=== PATIENT | female | born 1955 | race Caucasian/White ===

== ENCOUNTER 2016-11-09 08:22 | Emergency (ER) | payer BC ==
[~2016-11-09] VITALS: Ht 167.6 cm; Wt 118.2 kg
[~2016-11-09 08:22] MED LIST: ASPIRIN 81M81 MG/TA2 PO; B-12 500 MCG PO; BUSPAR5 MG PO; CELEXA 20MG20 MG/TAB PO; CLARITIN 1010 MG/TAB PO; HCTZ 25MG TAB25 MG PO; NORVASC 5MG5 MG/TAB PO; PROTONIX 40MG T40 MG PO; SINGULAIR 110 MG/TAB PO; TOPROL XL100 MG PO; VITAMIN D 400400 IU PO; VITAMIN D32000 I1 PO
[2016-11-09 08:44] VITALS: TEMP 98
[2016-11-09] MEDS ORDERED: LEVOXYL0.05 MG PO (09:06)
[2016-11-09 09:07] LABS: BASO % 0.7 % (0.0-2.0); EOS # 0.1 (0.0-0.7); EOS % 1.4 % (0-4.0); GRAN # 4.1 (1.4-6.5); GRAN % 69.1 % (42.2-75.2); HEMATOCRIT 40.9 % (37.0-47.0); HEMOGLOBIN 13.9 g/dl (12.5-16.0); LYMPH # 1.2 (1.2-3.4); MEAN CELL VOLUME 82 fl (80.0-100.0); MEAN CORPUSCULAR HEMOGLOBIN 28 pg (27.0-31.0); MEAN CORPUSCULAR HGB CONC 34 g/dl (33.0-37.0); MONO # 0.5 (0.1-0.6); MONO % 8.3 % (1.7-9.3); PLATELET COUNT 274 K/mm3 (130-400); RED BLOOD COUNT 5.02 M/mm3 (4.10-5.30); REDCELL DISTRIBUTION WIDTH-CV 12.9 % (11.5-14.5); WHITE BLOOD COUNT 5.9 K/mm3 (4.8-10.8)
[2016-11-09] MEDS ORDERED: TAZTIA180 (09:08)
[2016-11-09 09:27] LABS: ADJUSTED CALCIUM 8.9 mg/dL (8.4-10.2); ALANINE AMINOTRANSFERASE 30 U/L (9-52); ALBUMIN 3.9 gm/dL (3.5-5.0); ALKALINE PHOSPHATASE 63 U/L (50-136); ANION GAP 11 mmol/L (7-16); BILIRUBIN,TOTAL 0.8 mg/dL (0.0-1.0); BLOOD UREA NITROGEN 10 mg/dL (7-17); CALCIUM 8.8 mg/dL (8.4-10.2); CARBON DIOXIDE 27 mmol/L (22-30); CHLORIDE 100 mmol/L (98-107); CREATININE, serum 0.56 mg/dL (0.52-1.25); GLUCOSE 113 mg/dL (74-106); POTASSIUM 3.4 mmol/L (3.4-5.0); SODIUM 138 mmol/L (137-145); TOTAL PROTEIN 6.8 gm/dL (6.4-8.2)
[2016-11-09 09:35] LABS: B-TYPE NATRIURETIC PEPTIDE 172 pg/mL (0-125)
[2016-11-09 10:28] LABS: TROPONIN-I < 0.012 ng/mL (0.000-0.034)
[2016-11-09 11:37] VITALS: BP 142/74; PULSE 59
== END 2016-11-09 11:19 | disposition home or self-care (01) ==
LOC: COL.ER 08:22
PROVIDERS: Emergency Medicine
DX: I48.91 Unspecified atrial fibrillation (principal); I48.92 Unspecified atrial flutter; I10 Essential (primary) hypertension; Z79.82 Long term (current) use of aspirin

== ENCOUNTER 2016-12-28 14:15 | Emergency (ER) | payer BC ==
[~2016-12-28] VITALS: Ht 167.6 cm; Wt 113.6 kg
[~2016-12-28 14:15] MED LIST changes: +LEVOXYL0.05 MG PO; +TAZTIA180
[2016-12-28 14:18] VITALS: TEMP 98.4
[2016-12-28 14:59] LABS: BASO # 0.1 (0.0-0.2); BASO % 0.8 % (0.0-2.0); EOS # 0.2 (0.0-0.7); GRAN # 4.9 (1.4-6.5); GRAN % 66.1 % (42.2-75.2); HEMOGLOBIN 13.7 g/dl (12.5-16.0); LYMPH # 1.7 (1.2-3.4); LYMPH % 22.2 % (20.0-51.0); MEAN CELL VOLUME 82 fl (80.0-100.0); MEAN CORPUSCULAR HEMOGLOBIN 28 pg (27.0-31.0); MEAN CORPUSCULAR HGB CONC 34 g/dl (33.0-37.0); MEAN PLATELET VOLUME 10.1 fl (7.4-10.4); MONO # 0.6 (0.1-0.6); MONO % 8.6 % (1.7-9.3); PLATELET COUNT 300 K/mm3 (130-400); REDCELL DISTRIBUTION WIDTH-CV 12.9 % (11.5-14.5); WHITE BLOOD COUNT 7.5 K/mm3 (4.8-10.8)
[2016-12-28 15:05] LABS: PROTHROMBIN TIME 10.6 SECONDS (9.7-12.8)
[2016-12-28 15:07] LABS: PARTIAL THROMBOPLASTIN TIME 32.2 SECONDS (26.0-37.0)
[2016-12-28 15:11] LABS: ADJUSTED CALCIUM 8.7 mg/dL (8.4-10.2); ALANINE AMINOTRANSFERASE 31 U/L (9-52); ALBUMIN 4.1 gm/dL (3.5-5.0); ALKALINE PHOSPHATASE 76 U/L (50-136); ANION GAP 10 mmol/L (7-16); BILIRUBIN,TOTAL 0.5 mg/dL (0.0-1.0); BLOOD UREA NITROGEN 10 mg/dL (7-17); CALCIUM 8.8 mg/dL (8.4-10.2); CARBON DIOXIDE 25 mmol/L (22-30); CHLORIDE 101 mmol/L (98-107); CREATININE, serum 0.59 mg/dL (0.52-1.25); GLUCOSE 145 mg/dL (74-106); POTASSIUM 3.2 mmol/L (3.4-5.0); SODIUM 136 mmol/L (137-145)
[2016-12-28 15:23] LABS: TROPONIN-I < 0.012 ng/mL (0.000-0.034)
[2016-12-28] MEDS ORDERED: TOPROL XL 50MG50 MG PO (15:48)
[2016-12-28] MEDS ORDERED: XARELTO20 MG PO (15:48)
[2016-12-28 16:14] VITALS: BP 140/68; PULSE 66
== END 2016-12-28 16:18 | disposition home or self-care (01) ==
LOC: COL.ER 14:15
PROVIDERS: Emergency Medicine
DX: I48.91 Unspecified atrial fibrillation (principal); Z79.01 Long term (current) use of anticoagulants; Z79.82 Long term (current) use of aspirin

== ENCOUNTER → 2017-01-14 | Emergency (ER) | payer BC ==
[~2017-01-14] VITALS: Ht 167.6 cm; Wt 113.6 kg
[~2017-01-14] MED LIST changes: +K-DUR 10 MEQ T10 MEQ PO; +SYNTHROID0.05 MG/TA PO; +TOPROL XL 50MG50 MG PO; +XARELTO20 MG PO
[2017-01-14 21:00] VITALS: TEMP 97.9
[2017-01-14 21:48] VITALS: BP 129/70; PULSE 68
== END | disposition home or self-care (01) ==
LOC: COL.ER 20:58
DX: R00.2 Palpitations (principal); F41.9 Anxiety disorder, unspecified; I48.0 Paroxysmal atrial fibrillation; Z79.01 Long term (current) use of anticoagulants; F32.9 Major depressive disorder, single episode, unspecified

== ENCOUNTER 2017-03-08 01:47 | Emergency (ER) | payer BC ==
[~2017-03-08] VITALS: Ht 167.6 cm; Wt 115.9 kg
[~2017-03-08 01:47] MED LIST changes: -K-DUR 10 MEQ T10 MEQ PO; -SYNTHROID0.05 MG/TA PO
[2017-03-08] MEDS ORDERED: SYNTHROID0.05 MG/TA PO (02:01)
[2017-03-08 02:12] LABS: BASO # 0.1 (0.0-0.2); BASO % 0.4 % (0.0-2.0); EOS # 0.1 (0.0-0.7); EOS % 0.6 % (0-4.0); GRAN # 9.3 (1.4-6.5); GRAN % 76.7 % (42.2-75.2); HEMATOCRIT 38.1 % (37.0-47.0); LYMPH # 1.4 (1.2-3.4); LYMPH % 11.2 % (20.0-51.0); MEAN CELL VOLUME 82 fl (80.0-100.0); MEAN CORPUSCULAR HEMOGLOBIN 28 pg (27.0-31.0); MEAN CORPUSCULAR HGB CONC 34 g/dl (33.0-37.0); MEAN PLATELET VOLUME 10.2 fl (7.4-10.4); MONO # 1.3 (0.1-0.6); MONO % 10.6 % (1.7-9.3); PLATELET COUNT 303 K/mm3 (130-400); RED BLOOD COUNT 4.67 M/mm3 (4.10-5.30); REDCELL DISTRIBUTION WIDTH-CV 13.1 % (11.5-14.5); WHITE BLOOD COUNT 12.2 K/mm3 (4.8-10.8)
[2017-03-08 02:21] LABS: ADJUSTED CALCIUM 8.9 mg/dL (8.4-10.2); ALANINE AMINOTRANSFERASE 27 U/L (9-52); ALBUMIN 3.9 gm/dL (3.5-5.0); ALKALINE PHOSPHATASE 74 U/L (50-136); ANION GAP 9 mmol/L (7-16); BILIRUBIN,TOTAL 0.8 mg/dL (0.0-1.0); BLOOD UREA NITROGEN 11 mg/dL (7-17); CALCIUM 8.8 mg/dL (8.4-10.2); CARBON DIOXIDE 25 mmol/L (22-30); CHLORIDE 102 mmol/L (98-107); GLUCOSE 122 mg/dL (74-106); POTASSIUM 3.2 mmol/L (3.4-5.0); SODIUM 136 mmol/L (137-145)
[2017-03-08] MEDS ORDERED: K-DUR 10 MEQ T10 MEQ PO (02:49)
[2017-03-08 03:36] LABS: TROPONIN-I < 0.012 ng/mL (0.000-0.034)
[2017-03-08 06:27] VITALS: BP 108/57; PULSE 73; TEMP 97.4
== END 2017-03-08 06:29 | disposition home or self-care (01) ==
LOC: COL.ER 01:47
PROVIDERS: Emergency Medicine
DX: I48.91 Unspecified atrial fibrillation (principal); R50.9 Fever, unspecified; E87.6 Hypokalemia; Z90.49 Acquired absence of other specified parts of digestive tract
CPT/HCPCS: J3475

== ENCOUNTER 2017-03-11 19:27 | Emergency (ER) | payer BC ==
[~2017-03-11] VITALS: Ht 167.6 cm; Wt 113.6 kg
[~2017-03-11 19:27] MED LIST changes: +K-DUR 10 MEQ T10 MEQ PO; +SYNTHROID0.05 MG/TA PO
[2017-03-11 19:28] VITALS: TEMP 98.2
[2017-03-11 21:21] LABS: BASO % 0.3 % (0.0-2.0); EOS # 0.1 (0.0-0.7); EOS % 0.6 % (0-4.0); GRAN # 6.9 (1.4-6.5); GRAN % 77.4 % (42.2-75.2); HEMOGLOBIN 12.1 g/dl (12.5-16.0); LYMPH # 1.2 (1.2-3.4); LYMPH % 12.8 % (20.0-51.0); MEAN CELL VOLUME 82 fl (80.0-100.0); MEAN CORPUSCULAR HEMOGLOBIN 28 pg (27.0-31.0); MEAN CORPUSCULAR HGB CONC 34 g/dl (33.0-37.0); MEAN PLATELET VOLUME 9.9 fl (7.4-10.4); MONO # 0.7 (0.1-0.6); MONO % 8.3 % (1.7-9.3); PLATELET COUNT 359 K/mm3 (130-400); RED BLOOD COUNT 4.31 M/mm3 (4.10-5.30)
[2017-03-11 21:24] LABS: HEMATOCRIT 35.2 % (37.0-47.0)
[2017-03-11 21:33] LABS: ALANINE AMINOTRANSFERASE 30 U/L (9-52); ALKALINE PHOSPHATASE 73 U/L (50-136); ANION GAP 11 mmol/L (7-16); BILIRUBIN,TOTAL 0.6 mg/dL (0.0-1.0); BLOOD UREA NITROGEN 11 mg/dL (7-17); CARBON DIOXIDE 26 mmol/L (22-30); CHLORIDE 99 mmol/L (98-107); CREATININE, serum 0.57 mg/dL (0.52-1.25); GLUCOSE 119 mg/dL (74-106); POTASSIUM 3.2 mmol/L (3.4-5.0); SODIUM 136 mmol/L (137-145); TOTAL PROTEIN 7.1 gm/dL (6.4-8.2)
[2017-03-11 22:03] LABS: TROPONIN-I < 0.012 ng/mL (0.000-0.034)
[2017-03-11 23:32] VITALS: BP 131/87; PULSE 74
== END 2017-03-11 23:32 | disposition home or self-care (01) ==
LOC: COL.ER 19:27
PROVIDERS: Emergency Medicine
DX: R00.2 Palpitations (principal); I48.0 Paroxysmal atrial fibrillation; K21.9 Gastro-esophageal reflux disease without esophagitis; E03.9 Hypothyroidism, unspecified; I10 Essential (primary) hypertension; Z79.01 Long term (current) use of anticoagulants; Z79.82 Long term (current) use of aspirin

== ENCOUNTER 2017-03-18 08:55 | Emergency (ER) | payer BC ==
[~2017-03-18] VITALS: Ht 167.6 cm; Wt 111.4 kg
[2017-03-18 08:57] VITALS: TEMP 98.6
[2017-03-18 09:30] LABS: HEMOGLOBIN 13.3 g/dl (12.5-16.0); MEAN CELL VOLUME 80 fl (80.0-100.0); MEAN CORPUSCULAR HEMOGLOBIN 27 pg (27.0-31.0); MEAN CORPUSCULAR HGB CONC 34 g/dl (33.0-37.0); MEAN PLATELET VOLUME 9.8 fl (7.4-10.4); PLATELET COUNT 391 K/mm3 (130-400); RED BLOOD COUNT 4.89 M/mm3 (4.10-5.30); REDCELL DISTRIBUTION WIDTH-CV 12.6 % (11.5-14.5); WHITE BLOOD COUNT 7.7 K/mm3 (4.8-10.8)
[2017-03-18 09:35] LABS: INR 2.2 (0.8-3.0); PROTHROMBIN TIME 25.1 SECONDS (9.7-12.8)
[2017-03-18 09:44] LABS: ALBUMIN 4.2 gm/dL (3.5-5.0); BILIRUBIN,TOTAL 0.5 mg/dL (0.0-1.0); CALCIUM 9.2 mg/dL (8.4-10.2); CREATININE, serum 0.53 mg/dL (0.52-1.25); POTASSIUM 3.1 mmol/L (3.4-5.0); TOTAL PROTEIN 7.2 gm/dL (6.4-8.2)
[2017-03-18 09:55] LABS: TROPONIN-I 0.021 ng/mL (0.000-0.034)
[2017-03-18 13:13] VITALS: BP 150/95; PULSE 68
== END 2017-03-18 13:13 | disposition home or self-care (01) ==
LOC: COL.ER 08:55
PROVIDERS: Emergency Medicine
DX: R00.2 Palpitations (principal); I10 Essential (primary) hypertension; I48.91 Unspecified atrial fibrillation; J45.909 Unspecified asthma, uncomplicated; Z79.82 Long term (current) use of aspirin; Z90.49 Acquired absence of other specified parts of digestive tract; Z98.51 Tubal ligation status
CPT/HCPCS: J7040

== ENCOUNTER 2017-03-22 17:39 | Emergency (ER) | payer BC ==
[~2017-03-22] VITALS: Ht 167.6 cm; Wt 111.4 kg
[2017-03-22 17:43] VITALS: TEMP 98.1
[2017-03-22 18:35] LABS: BASO # 0.1 (0.0-0.2); BASO % 0.6 % (0.0-2.0); EOS # 0.1 (0.0-0.7); EOS % 0.7 % (0-4.0); GRAN # 5.9 (1.4-6.5); HEMOGLOBIN 12.4 g/dl (12.5-16.0); LYMPH # 1.7 (1.2-3.4); LYMPH % 19.7 % (20.0-51.0); MEAN CELL VOLUME 81 fl (80.0-100.0); MEAN CORPUSCULAR HEMOGLOBIN 28 pg (27.0-31.0); MEAN CORPUSCULAR HGB CONC 34 g/dl (33.0-37.0); MEAN PLATELET VOLUME 9.9 fl (7.4-10.4); MONO # 0.7 (0.1-0.6); MONO % 8.2 % (1.7-9.3); PLATELET COUNT 357 K/mm3 (130-400); RED BLOOD COUNT 4.44 M/mm3 (4.10-5.30); WHITE BLOOD COUNT 8.4 K/mm3 (4.8-10.8)
[2017-03-22 18:40] LABS: HEMATOCRIT 36.1 % (37.0-47.0)
[2017-03-22 18:44] LABS: INR 1.4 (0.8-3.0); PROTHROMBIN TIME 15.4 SECONDS (9.7-12.8)
[2017-03-22 18:51] LABS: ALANINE AMINOTRANSFERASE 44 U/L (9-52); ALBUMIN 4.1 gm/dL (3.5-5.0); ALKALINE PHOSPHATASE 63 U/L (50-136); ANION GAP 11 mmol/L (7-16); BILIRUBIN,TOTAL 0.6 mg/dL (0.0-1.0); BLOOD UREA NITROGEN 9 mg/dL (7-17); CALCIUM 9.1 mg/dL (8.4-10.2); CARBON DIOXIDE 25 mmol/L (22-30); CHLORIDE 96 mmol/L (98-107); CREATININE, serum 0.56 mg/dL (0.52-1.25); GLUCOSE 103 mg/dL (74-106); POTASSIUM 3.2 mmol/L (3.4-5.0); SODIUM 132 mmol/L (137-145); TOTAL PROTEIN 6.8 gm/dL (6.4-8.2)
[2017-03-22 19:03] LABS: TROPONIN-I < 0.012 ng/mL (0.000-0.034)
[2017-03-22] MEDS ORDERED: ATIVAN 1MG T1 MG/TAB PO (21:05)
[2017-03-22 21:16] VITALS: BP 135/82; PULSE 56
== END 2017-03-22 21:16 | disposition home or self-care (01) ==
LOC: COL.ER 17:39
PROVIDERS: Emergency Medicine
DX: F41.9 Anxiety disorder, unspecified (principal); R20.9 Unspecified disturbances of skin sensation; I48.91 Unspecified atrial fibrillation; I10 Essential (primary) hypertension; K21.9 Gastro-esophageal reflux disease without esophagitis; G47.33 Obstructive sleep apnea (adult) (pediatric); Z79.82 Long term (current) use of aspirin

== ENCOUNTER 2018-04-28 19:39 | Emergency (ER) | payer BC ==
[~2018-04-28] VITALS: Ht 167.6 cm; Wt 113.6 kg
[~2018-04-28 19:39] MED LIST changes: +ATIVAN 1MG T1 MG/TAB PO
[2018-04-28 19:40] VITALS: TEMP 98.3
[2018-04-28] MEDS ORDERED: TOPROL XL100 MG PO (20:01)
[2018-04-28] MEDS ORDERED: CARTIA XT180 MG PO (20:02)
[2018-04-28] MEDS ORDERED: ZESTRIL 20MG TA20 MG PO (20:02)
[2018-04-28] MEDS ORDERED: BUSPAR5 MG PO (20:02)
[2018-04-28] MEDS ORDERED: PROTONIX 40MG T40 MG PO (20:03)
[2018-04-28 20:55] VITALS: BP 140/70; PULSE 57
== END 2018-04-28 20:57 | disposition home or self-care (01) ==
LOC: COL.ER 19:39
DX: M25.552 Pain in left hip (principal); J45.909 Unspecified asthma, uncomplicated; I10 Essential (primary) hypertension; I48.91 Unspecified atrial fibrillation; Z79.01 Long term (current) use of anticoagulants

== ENCOUNTER 2018-09-05 23:16 | Emergency (ER) | payer BC ==
[~2018-09-05] VITALS: Ht 167.6 cm; Wt 115.9 kg
[~2018-09-05 23:16] MED LIST changes: +CARTIA XT180 MG PO; +ZESTRIL 20MG TA20 MG PO
[2018-09-05 23:19] VITALS: TEMP 97
[2018-09-05] MEDS ORDERED: TAMBOCOR 1100 MG/TAB PO (23:24)
[2018-09-05] MEDS ORDERED: VALTREX 50500 MG/TAB PO (23:26)
[2018-09-05] MEDS ORDERED: SINGULAIR 110 MG/TAB PO (23:27)
[2018-09-05] MEDS ORDERED: DIPROLENE CR15GM TP (23:28)
[2018-09-05] MEDS ORDERED: BUSPAR5 MG PO (23:28)
[2018-09-06 00:11] LABS: BASO % 0.2 % (0.0-2.0); EOS # 0.1 (0.0-0.7); EOS % 1.5 % (0-4.0); GRAN # 3.1 (1.4-6.5); GRAN % 66.8 % (42.2-75.2); HEMATOCRIT 38.2 % (37.0-47.0); HEMOGLOBIN 13.1 g/dl (12.5-16.0); LYMPH # 0.8 (1.2-3.4); LYMPH % 17.9 % (20.0-51.0); MEAN CELL VOLUME 83 fl (80.0-100.0); MEAN CORPUSCULAR HEMOGLOBIN 28 pg (27.0-31.0); MEAN CORPUSCULAR HGB CONC 34 g/dl (33.0-37.0); MEAN PLATELET VOLUME 10.3 fl (7.4-10.4); MONO # 0.6 (0.1-0.6); PLATELET COUNT 224 K/mm3 (130-400); RED BLOOD COUNT 4.62 M/mm3 (4.10-5.30); REDCELL DISTRIBUTION WIDTH-CV 13.4 % (11.5-14.5)
[2018-09-06 00:23] LABS: ALANINE AMINOTRANSFERASE 24 U/L (9-52); ALBUMIN 3.8 gm/dL (3.5-5.0); ALKALINE PHOSPHATASE 74 U/L (50-136); ANION GAP 9 mmol/L (7-16); AST,SGOT 19 U/L (15-37); BILIRUBIN,TOTAL 0.2 mg/dL (0.0-1.0); BLOOD UREA NITROGEN 12 mg/dL (7-17); C-REACTIVE PROTEIN 0.6 mg/dL (0.0-0.9); CALCIUM 8.4 mg/dL (8.4-10.2); CARBON DIOXIDE 28 mmol/L (22-30); CHLORIDE 95 mmol/L (98-107); CREATININE, serum 0.58 mg/dL (0.52-1.25); GLUCOSE 148 mg/dL (74-106); SODIUM 132 mmol/L (137-145); TOTAL PROTEIN 6.7 gm/dL (6.4-8.2)
[2018-09-06 00:29] LABS: POTASSIUM 2.8 mmol/L (3.4-5.0)
[2018-09-06 00:37] LABS: TROPONIN-I < 0.012 ng/mL (0.000-0.035)
[2018-09-06] MEDS ORDERED: PREDNISONE20 MG PO (01:03)
[2018-09-06] MEDS ORDERED: ZITHROMAX 250M250 MG PO (01:03)
[2018-09-06] MEDS ORDERED: K-DUR20 MEQ PO (01:03)
[2018-09-06 03:53] VITALS: BP 144/70; PULSE 71
== END 2018-09-06 04:12 | disposition short-term general hospital (02) ==
LOC: COL.ER 23:16
PROVIDERS: Emergency Medicine
DX: J45.901 Unspecified asthma with (acute) exacerbation (principal); E87.6 Hypokalemia; I48.91 Unspecified atrial fibrillation; J10.1 Influenza due to other identified influenza virus with other respiratory manifestations; I10 Essential (primary) hypertension; K21.9 Gastro-esophageal reflux disease without esophagitis; Z79.01 Long term (current) use of anticoagulants
CPT/HCPCS: J2930; J3480; J7030; J7512

== ENCOUNTER 2018-10-23 21:35 | Emergency (ER) | payer BC ==
[~2018-10-23 21:35] MED LIST changes: +DIPROLENE CR15GM TP; +K-DUR20 MEQ PO; +PREDNISONE20 MG PO; +TAMBOCOR 1100 MG/TAB PO; +VALTREX 50500 MG/TAB PO; +ZITHROMAX 250M250 MG PO
[2018-10-23 21:39] VITALS: TEMP 97.6
[2018-10-23 22:03] LABS: BASO % 0.5 % (0.0-2.0); EOS # 0.1 (0.0-0.7); EOS % 1.5 % (0-4.0); GRAN # 5.3 (1.4-6.5); GRAN % 62.9 % (42.2-75.2); HEMATOCRIT 38.4 % (37.0-47.0); HEMOGLOBIN 12.8 g/dl (12.5-16.0); LYMPH # 2.1 (1.2-3.4); LYMPH % 25.1 % (20.0-51.0); MEAN CELL VOLUME 84 fl (80.0-100.0); MEAN CORPUSCULAR HEMOGLOBIN 28 pg (27.0-31.0); MEAN CORPUSCULAR HGB CONC 33 g/dl (33.0-37.0); MEAN PLATELET VOLUME 10.2 fl (7.4-10.4); MONO # 0.8 (0.1-0.6); MONO % 9.5 % (1.7-9.3); PLATELET COUNT 281 K/mm3 (130-400); RED BLOOD COUNT 4.57 M/mm3 (4.10-5.30); REDCELL DISTRIBUTION WIDTH-CV 13.6 % (11.5-14.5)
[2018-10-23 22:13] LABS: ALANINE AMINOTRANSFERASE 15 U/L (9-52); ALBUMIN 4.1 gm/dL (3.5-5.0); ALKALINE PHOSPHATASE 87 U/L (50-136); ANION GAP 7 mmol/L (7-16); AST,SGOT 25 U/L (15-37); BILIRUBIN,TOTAL 0.4 mg/dL (0.0-1.0); BLOOD UREA NITROGEN 15 mg/dL (7-17); C-REACTIVE PROTEIN 1.1 mg/dL (0.0-0.9); CALCIUM 9.4 mg/dL (8.4-10.2); CARBON DIOXIDE 28 mmol/L (22-30); CHLORIDE 102 mmol/L (98-107); CREATININE, serum 0.66 (0.52-1.25); GLUCOSE 147 mg/dL (74-106); POTASSIUM 3.3 mmol/L (3.4-5.0); SODIUM 137 mmol/L (137-145); TOTAL PROTEIN 6.9 gm/dL (6.4-8.2)
[2018-10-23 22:22] LABS: TROPONIN-I < 0.012 ng/mL (0.000-0.035)
[2018-10-23 23:02] VITALS: BP 150/70; PULSE 68
== END 2018-10-23 23:00 | disposition home or self-care (01) ==
LOC: COL.ER 21:35
PROVIDERS: Emergency Medicine
DX: R00.2 Palpitations (principal); I48.91 Unspecified atrial fibrillation; I10 Essential (primary) hypertension; K21.9 Gastro-esophageal reflux disease without esophagitis; F41.9 Anxiety disorder, unspecified; Z79.82 Long term (current) use of aspirin; Z79.51 Long term (current) use of inhaled steroids

== ENCOUNTER 2018-11-20 11:34 | Inpatient (IN) | payer BC ==
[~2018-11-20] VITALS: Ht 167.6 cm; Wt 117.6 kg
[2018-11-20] MEDS ORDERED: PREDNISONE10 MG PO (12:05)
[2018-11-20 12:20] LABS: HEMOGLOBIN 13.5 g/dl (12.5-16.0); MEAN CELL VOLUME 82 fl (80.0-100.0); MEAN CORPUSCULAR HEMOGLOBIN 28 pg (27.0-31.0); MEAN CORPUSCULAR HGB CONC 34 g/dl (33.0-37.0); MEAN PLATELET VOLUME 9.8 fl (7.4-10.4); PLATELET COUNT 426 K/mm3 (130-400); RED BLOOD COUNT 4.89 M/mm3 (4.10-5.30)
[2018-11-20 12:31] LABS: ALBUMIN 4.4 gm/dL (3.5-5.0); BILIRUBIN,TOTAL 0.5 mg/dL (0.0-1.0); C-REACTIVE PROTEIN 1.1 mg/dL (0.0-0.9); CALCIUM 9.5 mg/dL (8.4-10.2); CREATININE, serum 0.49 (0.52-1.25); POTASSIUM 3.5 mmol/L (3.4-5.0); TOTAL PROTEIN 7.9 gm/dL (6.4-8.2)
[2018-11-20 12:40] LABS: BAND 6 % (0-10); LYMPHOCYTE 9 % (20.0-51.0); METAMYELOCYTE 1 % (0-0); NEUTROPHILS 80 % (42.0-75.2); PLATELET ESTIMATE NORMAL (NORMAL)
[2018-11-20 12:58] LABS: TSH w REFLEX 0.214 uIU/mL (0.465-4.680)
[2018-11-20 15:19] VITALS: BP 171/71; PULSE 65; TEMP 97.7
--- NOTE | 2018-11-20 18:36 | NUR ---
Pt up to the floor this afternoon, initial assessments complete, no C/O pain, Pt is not having difficulty breathing at this time although her tongue is still swollen. Medications may be given with small sips of water Per Eun DIAMOND.
--- NOTE | 2018-11-20 19:30 | NUR ---
Bedside report received from GEREMIAS Foreman
--- NOTE | 2018-11-20 19:30 | NUR ---
Bedside report received from GEREMIAS Rm
[2018-11-20 19:35] VITALS: BP 161/77; PULSE 104; TEMP 97.4
--- NOTE | 2018-11-20 20:00 | NUR ---
Patient alert and oriented sitting up in the chair. Patient has been moving independently around the room. Assessment complete. Assessment reveals clear lung sounds, though patient is hard to understand due to the swelling in her mouth. HR and rhythm regular with normal S1 and S2. Patient has no complaints of pain. Assisted patient with taking her pills. Patient was successful with some, but could not take the vitamin D. Patient started choking and had a coughing fit. This nurse stayed with her the entirety of her fit until patient said she was better. Will avoid fluids for a while and pills for the rest of the night. Will reevaluate in the morning. No other needs at this time. Will continue to monitor. Call light within reach.
[2018-11-20 23:55] VITALS: BP 151/65; PULSE 71; TEMP 98.3
[2018-11-21] VITALS (14 sets, daily range): BP systolic 122–172; BP diastolic 44–88; PULSE 54–114; TEMP 97.7–98.8
--- NOTE | 2018-11-21 | NUR ---
Patient resting in bed. She is alert and oriented. Patient has no complaints of pain or any current needs. Vitals have been stable. Will continue to monitor. Call light within reach. Transfusion to be started soon.
--- NOTE | 2018-11-21 03:50 | NUR ---
Went into room to check on patient and transfusion. Patient requests assistance to get up to the restroom, removed all unnecessary lines. When patient was washing her hands she stated that she really felt like he had a lot oh plegm stuck in her throat. Patient looked very anxious and uncomfortable. Offered her to brush her teeth and to see if that would help. She agrees, brushes her teeth with minimal improvement. Patient back in bed and states that she is really trying hard not to panic. This nurse went and got suction supplies and setup oral suctioning in the room. Showed patient how to use the suction. Patient is now suctioning herself with more success. Patient occassionally gets some large thick sputum out. After about 10mins of suctioning patient is starting to sound much better and much more relaxed. Will notify provider and continue to monitor closely.
--- NOTE | 2018-11-21 05:35 | NUR ---
LOBO Haq at the bedside at this time to check on patient. Patient states she is doing much better now and is even laughing. She states her anxiety is much better. Will continue to monitor.
[2018-11-21 07:10] LABS: BASO % 0.1 % (0.0-2.0); GRAN # 13.8 (1.4-6.5); HEMATOCRIT 39.4 % (37.0-47.0); HEMOGLOBIN 13.2 g/dl (12.5-16.0); LYMPH # 1.4 (1.2-3.4); LYMPH % 8.3 % (20.0-51.0); MEAN CELL VOLUME 84 fl (80.0-100.0); MEAN CORPUSCULAR HEMOGLOBIN 28 pg (27.0-31.0); MEAN CORPUSCULAR HGB CONC 34 g/dl (33.0-37.0); MEAN PLATELET VOLUME 9.8 fl (7.4-10.4); MONO # 1.1 (0.1-0.6); MONO % 6.4 % (1.7-9.3); PLATELET COUNT 472 K/mm3 (130-400); RED BLOOD COUNT 4.71 M/mm3 (4.10-5.30); REDCELL DISTRIBUTION WIDTH-CV 13.3 % (11.5-14.5)
--- NOTE | 2018-11-21 07:19 | NUR ---
Bedside report given to GEREMIAS Mckeon
[2018-11-21 07:24] LABS: CALCIUM 9.7 mg/dL (8.4-10.2); CREATININE, serum 0.6 (0.52-1.25); POTASSIUM 3.4 mmol/L (3.4-5.0)
--- NOTE | 2018-11-21 07:37 | NUR ---
Assessment completed, alert/oriented, vital signs stable, denies any shortness of air/ no resp.difficulty observed, no upper airway restriction and lungs CTA throughout, speech is impaired and patient reports swallowing has gotten worse to the point she is unable to cough/clear her throat or even swallow liquids, upon visualiztion of her throat there is no swelling noted in oralpharyngeal region, she is scheduled for MRI this morning, heart RRR/ SR on tele, unable to take antiarrythmics and has hx of A.fib/ i will discuss this with Physician this morning, she is using oral suction to help with secretion, she is NPO, denies other needs at this time
--- NOTE | 2018-11-21 09:51 | NUR ---
SW met with patient and family to discuss discharge planning. Patient lives independently at home with her . Patient's PCP is Dr Naomi Stover and she obtains prescriptions from [facility]. Patient uses a CPAP at home but no other DME is reported. Patient does not use any home health services. Patient's reports patient has advanced directives. SW request supplies a copy for patient's chart. SW will continue to follow as needed.
--- NOTE | 2018-11-21 19:10 | NUR ---
Pt report received from Mike ARCHULETA. Pt sitting at bedside. Wrote a note saying that mother an hour ago. Eyes are red and tearful. Suctioning mouth at this time with spouse at bedside.
--- NOTE | 2018-11-21 21:05 | NUR ---
This nurse was called on the phone from another nurse on the unit due to pt calling out with c/o SOA. When this nurse entered the pts room pt was sitting on the edge of the bed facing the door with tears rolling down the face. Pt through writting on a white board and through verbal attempts pt reported laying down, feeling increasing SOA and feeling increased anxiety. SOA improved. Pt reported this is the first time this feeling has occured with laying down. Agreement between nurse and pt received following shift assessment to administer Ativan.
[2018-11-22] VITALS (20 sets, daily range): BP systolic 108–175; BP diastolic 57–105; PULSE 50–143; TEMP 97.4–99; O2SAT 92–95
--- NOTE | 2018-11-22 03:00 | NUR ---
Pt resting quietly in a high fowlers position with nasal mask/ CPAP in place. No mouth excretions noted at this time or use of suction. Pt awakens intermittently with staff in the room when assessing IV pump/ IV site with complaints or suctioning of the mouth.
[2018-11-22 06:24] LABS: BASO % 0.3 % (0.0-2.0); EOS % 0.1 % (0-4.0); GRAN % 74.6 % (42.2-75.2); HEMOGLOBIN 12.5 g/dl (12.5-16.0); LYMPH # 1.8 (1.2-3.4); LYMPH % 14.7 % (20.0-51.0); MEAN CELL VOLUME 86 fl (80.0-100.0); MEAN CORPUSCULAR HEMOGLOBIN 27 pg (27.0-31.0); MEAN CORPUSCULAR HGB CONC 32 g/dl (33.0-37.0); MEAN PLATELET VOLUME 9.7 fl (7.4-10.4); MONO # 1.2 (0.1-0.6); MONO % 9.6 % (1.7-9.3); RED BLOOD COUNT 4.56 M/mm3 (4.10-5.30); REDCELL DISTRIBUTION WIDTH-CV 13.5 % (11.5-14.5)
[2018-11-22 06:26] LABS: PLATELET COUNT 357 K/mm3 (130-400)
[2018-11-22 06:32] LABS: CALCIUM 8.7 mg/dL (8.4-10.2); CREATININE, serum 0.63 (0.52-1.25); POTASSIUM 3.2 mmol/L (3.4-5.0)
--- NOTE | 2018-11-22 06:55 | NUR ---
Report provided to Fina ARCHULETA. Pt sitting on edge of bed in the dark upon entering the room. Denies any current complaints. Discussed lumbar puncture for spinal fluid testing ordered by Dr. Powell following evaluation last night. Explained procedure and what testing could show (encephalitis). Questions encouraged and answered when asked.
--- NOTE | 2018-11-22 07:48 | NUR ---
Assessment complete. Patient A&Ox4, denies pain and reporting numbness on tongue. Patient can move tongue, stick out, and no visible swelling noted by nurse. Bedside suction which patient using independently. VS stable. No reported SOA. IV CDI, fluids infusing. Patient NPO for procedure and is aware. No futher needs expressed from patient. Call light within reach
--- NOTE | 2018-11-22 10:10 | NUR ---
Patient taken by wheelchair for procedure. VS stable.
--- NOTE | 2018-11-22 11:06 | NUR ---
SW attended clinical rounds. Patient will get an MRI today. Patient is tearfu due to nerves but understands that she needs to go it. SW will follow as needed.
--- NOTE | 2018-11-22 11:54 | NUR ---
Patient going down for procedure on cart. VS stable. No further needs from patient.
[2018-11-22 12:11] LABS: GLUCOSE,CSF 52 mg/dL (40-70); TOTAL PROTEIN,CSF 42 mg/dL (15-45)
[2018-11-22 12:27] LABS: CSF APPEARANCE CLEAR; CSF COLOR COLORLESS; CSF RBC 31 /mm3 (0-0)
[2018-11-22 12:28] LABS: CSF MONONUCLEAR 100 % (70-100); CSF POLYMORPHONUCLEAR 0 % (0-6)
--- NOTE | 2018-11-22 15:30 | NUR ---
Patient back to room 315 from procedure. Patient slightly drowsy, but steady on her feet. Nurse assisted patient to the bathroom. VS stable. Fluids infusing. Call light within reach. Will continue to monitor
--- NOTE | 2018-11-22 19:05 | NUR ---
Patient resting in bed. CPAP on, patient alert and easily awakened. VS stable. PICC CDI, fluids infusing. Patient still stating tongue is numb and having difficulty swallowing and speaking. Suction at the bedside, patient independently using. White board at the bedside to assist with communication. No further needs expressed from patient. Call light within reach
--- NOTE | 2018-11-22 20:59 | NUR ---
PT IN BED WITH HOB AT 45 DEGREE ANGLE AND CPAP ON. PT DOES COMMUNICATE AND ABLE TO UNDERSTAND. DENIES PAIN OR DISCOMFORT AND AT BEDSIDE. NO NEEDS AT THIS TIME. CALL LIGHT WITHIN REACH.
--- NOTE | 2018-11-22 21:19 | NUR ---
TELEY CALLED AND ADVISED THAT PT'S HEART RATE WAS IN THE 140s. WENT TO PT'S ROOM AND PT ADVISED THAT SHE FEELS FINE TAKEN SET OF VS. CALLED ENRIQUE DIAMOND. RECEIVED ORDERS FOR EKG AND CALLED RT FOR STAT EKG.
--- NOTE | 2018-11-22 21:29 | NUR ---
ENRIQUE DIAMOND CAME IN TO PT'S ROOM TO EXAMINE PT.
--- NOTE | 2018-11-22 23:30 | NUR ---
REPORT WAS GIVEN TO KIRSTY TITLE I DIRECTOR NURSE FOR TRANSFER. PT'S O2 SATS ON RM WAS 91% AND PT ADVISED THAT SHE FELT SOB. PLACED PT ON 2L/NC AND TAKEN DOWN TO ICU. PT'S GIVEN PASSCODE AND VISITING HOURS FOR ICU. PT'S BELONGS WERE TAKEN DOWN AND TO TAKE FRESH LORENZ HOME WITH HIM. LAST SET OF VS WNL.
[2018-11-23] VITALS (925 sets, daily range): BP systolic 109–174; BP diastolic 74–93; PULSE 54–145; TEMP 97.9–99; O2SAT 79–100
[2018-11-23 01:17] LABS: BASO % 0.3 % (0.0-2.0); EOS # 0.1 (0.0-0.7); EOS % 0.5 % (0-4.0); GRAN # 8.1 (1.4-6.5); GRAN % 68.1 % (42.2-75.2); HEMATOCRIT 38.8 % (37.0-47.0); HEMOGLOBIN 12.7 g/dl (12.5-16.0); LYMPH # 2.4 (1.2-3.4); LYMPH % 20.6 % (20.0-51.0); MEAN CELL VOLUME 85 fl (80.0-100.0); MEAN CORPUSCULAR HEMOGLOBIN 28 pg (27.0-31.0); MEAN CORPUSCULAR HGB CONC 33 g/dl (33.0-37.0); MEAN PLATELET VOLUME 9.5 fl (7.4-10.4); MONO # 1.2 (0.1-0.6); MONO % 9.8 % (1.7-9.3); PLATELET COUNT 355 K/mm3 (130-400); RED BLOOD COUNT 4.56 M/mm3 (4.10-5.30); REDCELL DISTRIBUTION WIDTH-CV 13.3 % (11.5-14.5)
--- NOTE | 2018-11-23 01:41 | NUR ---
6532- RECEIVED REPORT FROM GEREMIAS GUILLORY. 2340- PT ARRIVED IN UNIT, ALERT AND ORIENTED X 4. VERY PLEASANT. SPOUSE PRESENT AT BEDSIDE. PT HAVING HARD TIME SPEAKING, USES WHITE BOARD TO AIDE WITH COMMUNICATION. DENIES PAIN AT THIS TIME. PT'S HR AT 130'S STILL, ON CARDIZEM DRIP AT MAX RATE. 0100 - PT ON SINUS TACH AT 110-130'S. CARDIZEM DISCONTINUED AND SWITCHED TO AMIODARONE.
[2018-11-23 01:53] LABS: CALCIUM 8.5 mg/dL (8.4-10.2); CREATININE, serum 0.64 (0.52-1.25); POTASSIUM 3.7 mmol/L (3.4-5.0)
[2018-11-23 02:01] LABS: MAGNESIUM 2.2 mg/dL (1.6-2.3)
--- NOTE | 2018-11-23 02:14 | NUR ---
PT ON SINUS BRADYCARDIA, HR AT 55. LOPRESSOR NOT GIVEN AT THIS TIME PER LIBRARY HISTORIAN'S ORDER.
--- NOTE | 2018-11-23 08:00 | NUR ---
Shift assessment complete at this time. Plan of care reviewed at bedside with patient. Additional time taken to address any other needs or concerns. Vitals stable at this time. Denies pain or any other discomfort. Bed in low position, call light in reach, will continue to monitor.
--- NOTE | 2018-11-23 12:00 | NUR ---
Pt resting comfortably in chair. Denies pain or any other discomfort. Vitals stable at this time. Call light within reach. Will continue to monitor.
[2018-11-23 13:26] LABS: CHOLESTEROL 178 mg/dL (120-200); TRIGLYCERIDE 162 mg/dL
--- NOTE | 2018-11-23 19:10 | NUR ---
Bedside report given to GEREMIAS Izquierdo.
--- NOTE | 2018-11-23 23:54 | NUR ---
INITIATE PER ORDER.
--- NOTE | 2018-11-23 23:55 | NUR ---
RECEIVING RATE FROM NURSE WALL
--- NOTE | 2018-11-23 23:58 | NUR ---
PT BACK ON AFIB RVR, 150 MG BOLUS GIVEN OVER 10 MINS PER ORDER. DRIP STATUS INCREASED TO 1 MG/MIN ORDERED. WILL CONTINUE TO MONITOR.
[2018-11-24] VITALS (1157 sets, daily range): BP systolic 139–195; BP diastolic 73–103; PULSE 72–141; TEMP 36.8–36.9; O2SAT 86–100
--- NOTE | 2018-11-24 00:21 | NUR ---
2140- PT'S BP MAINTAINING AT 170'S WITH THE LATEST AT 174/79, STONE PAVER CALLED AND RECEIVED ORDER OF METOPROLOL ONCE AND GIVEN. 2300- PT BACK ON AFIB RVR AT 140'S, STONE PAVER NOTIFIED AND ORDERED AMIODARONE BOLUS AND DRIP INCRESED TO 1 MG/MIN. GIVEN ORDERED. 0000- PT'S BP AT 166/95 STILL, STONE PAVER NOTIFIED ORDERED ANOTHER DOSE OF METOPROLOL AND ORDERED IT TO BE SCHEDULED EVERY 6 HOURS WELL. WILL CONTINUE TO MONITOR.
--- NOTE | 2018-11-24 00:46 | NUR ---
PT'S HR NOW AT 80'S. WILL CONTINUE TO MONITOR.
--- NOTE | 2018-11-24 03:56 | NUR ---
PT BACK ON AFIB/AFLUTTER, TOWERMAN NOTIFIED, NO NEW ORDERS GIVEN AT THIS TIME. WILL CONTINUE TO MONITOR.
--- NOTE | 2018-11-24 04:09 | NUR ---
PT NOW BACK TO SINUS RHYTHM.
[2018-11-24 05:45] LABS: BASO % 0.3 % (0.0-2.0); EOS # 0.2 (0.0-0.7); EOS % 1.8 % (0-4.0); HEMATOCRIT 37.6 % (37.0-47.0); HEMOGLOBIN 12.3 g/dl (12.5-16.0); LYMPH # 1.5 (1.2-3.4); LYMPH % 15.2 % (20.0-51.0); MEAN CELL VOLUME 84 fl (80.0-100.0); MEAN CORPUSCULAR HEMOGLOBIN 28 pg (27.0-31.0); MEAN CORPUSCULAR HGB CONC 33 g/dl (33.0-37.0); MEAN PLATELET VOLUME 9.7 fl (7.4-10.4); MONO # 0.8 (0.1-0.6); MONO % 8.7 % (1.7-9.3); PLATELET COUNT 305 K/mm3 (130-400); RED BLOOD COUNT 4.47 M/mm3 (4.10-5.30); REDCELL DISTRIBUTION WIDTH-CV 13.2 % (11.5-14.5)
[2018-11-24 05:54] LABS: CALCIUM 8.7 mg/dL (8.4-10.2); CREATININE, serum 0.54 (0.52-1.25); MAGNESIUM 2.1 mg/dL (1.6-2.3); PHOSPHOROUS 2.7 mg/dL (2.5-4.5); POTASSIUM 3.5 mmol/L (3.4-5.0)
--- NOTE | 2018-11-24 06:03 | NUR ---
PT BACK IN AFIB RVR, MUFFLER HAND NOTIFIED, CARDILOGY CONSULT ORDERED AND PENDING. WILL CONTINUE TO MONTITOR FOR NOW.
--- NOTE | 2018-11-24 06:16 | NUR ---
PT NOW AT SINUS RHYTHM, HR AT 61.
--- NOTE | 2018-11-24 09:13 | NUR ---
Pt resting comfortably this AM, says she did not sleep well overnight. Pt denies pain but complains of some SOB while ambulating which is "worse than yesterday", MD aware. )2 via NC as needed
--- NOTE | 2018-11-24 17:50 | NUR ---
Pt flipped into afib today, sustained HRs in the 13-145 range, asymptomatic. Notified Dr Ortega who requested RN call cardiology to manage treatment. Notified Dr Mcneal as directed, requested to review consultation notes and proceed with recommendations. Pt then converted back to NSR, will begin with treatment plan if afib is sustained again.
--- NOTE | 2018-11-24 21:00 | NUR ---
PT UP IN CHAIR, ALERT AND ORIENTED. COLD SORES PRESENT. PT DENIES ANY PAIN AT THIS TIME. STILL FEELS SOB WHEN AMBULATING TO BATHROOM, ON O2 AT 2 LPM. WILL CONTINUE TO MONITOR.
[2018-11-25] VITALS (992 sets, daily range): BP systolic 147–190; BP diastolic 73–103; PULSE 58–73; TEMP 97.8–98.8; O2SAT 85–100
[2018-11-25 05:17] LABS: BASO % 0.4 % (0.0-2.0); EOS # 0.3 (0.0-0.7); EOS % 3.9 % (0-4.0); GRAN % 67.9 % (42.2-75.2); HEMOGLOBIN 11.4 g/dl (12.5-16.0); LYMPH # 1.4 (1.2-3.4); LYMPH % 18.9 % (20.0-51.0); MEAN CELL VOLUME 87 fl (80.0-100.0); MEAN CORPUSCULAR HEMOGLOBIN 28 pg (27.0-31.0); MEAN CORPUSCULAR HGB CONC 32 g/dl (33.0-37.0); MONO # 0.6 (0.1-0.6); MONO % 8.1 % (1.7-9.3); PLATELET COUNT 297 K/mm3 (130-400); RED BLOOD COUNT 4.05 M/mm3 (4.10-5.30); REDCELL DISTRIBUTION WIDTH-CV 13.5 % (11.5-14.5)
[2018-11-25 05:18] LABS: HEMATOCRIT 35.3 % (37.0-47.0)
[2018-11-25 05:33] LABS: CALCIUM 8.7 mg/dL (8.4-10.2); CREATININE, serum 0.54 (0.52-1.25); MAGNESIUM 2.3 mg/dL (1.6-2.3); PHOSPHOROUS 3.4 mg/dL (2.5-4.5); POTASSIUM 3.6 mmol/L (3.4-5.0)
--- NOTE | 2018-11-25 07:10 | NUR ---
Report recieved from Felecia ARCHULETA. Patient up in the chair, medications verified. Call light in reach, denies needs
--- NOTE | 2018-11-25 14:00 | NUR ---
Amiodarone PO given. 1500 Amiodarone infusion off at this time.
--- NOTE | 2018-11-25 19:45 | NUR ---
Bedside report given to Lanette ARCHULETA. TPN verified. Gown and linens changed. Denies needs. Call light at side.
[2018-11-26] VITALS (12 sets, daily range): BP systolic 148–180; BP diastolic 68–89; PULSE 59–71; TEMP 97.9–98.6; O2SAT 93–97
--- NOTE | 2018-11-26 02:00 | NUR ---
Pt resting well in fowlers position with nasal pillow mask attached to CPAP in use. Pt is easily arousable when needed so far this shift.
[2018-11-26 06:15] LABS: BASO % 0.5 % (0.0-2.0); EOS # 0.5 (0.0-0.7); EOS % 7.1 % (0-4.0); GRAN # 5.1 (1.4-6.5); GRAN % 66.6 % (42.2-75.2); HEMATOCRIT 37.4 % (37.0-47.0); HEMOGLOBIN 11.9 g/dl (12.5-16.0); LYMPH # 1.2 (1.2-3.4); LYMPH % 16.3 % (20.0-51.0); MEAN CELL VOLUME 86 fl (80.0-100.0); MEAN CORPUSCULAR HEMOGLOBIN 28 pg (27.0-31.0); MEAN CORPUSCULAR HGB CONC 32 g/dl (33.0-37.0); MEAN PLATELET VOLUME 9.9 fl (7.4-10.4); MONO # 0.6 (0.1-0.6); MONO % 8.4 % (1.7-9.3); PLATELET COUNT 309 K/mm3 (130-400); RED BLOOD COUNT 4.33 M/mm3 (4.10-5.30); REDCELL DISTRIBUTION WIDTH-CV 13.6 % (11.5-14.5)
[2018-11-26 06:29] LABS: CREATININE, serum 0.5 (0.52-1.25); MAGNESIUM 2.1 mg/dL (1.6-2.3); PHOSPHOROUS 3.4 mg/dL (2.5-4.5); POTASSIUM 4.2 mmol/L (3.4-5.0)
--- NOTE | 2018-11-26 07:30 | NUR ---
Bedside report provided to Miriam ARCHULETA. Pt resting in the chair at this time asking about breakfast. Informed pt that ST will do a bedside swallow study prior to changing diet order from clear liquids. Pt ordered coffee and jellow from cafeteria and just following ST arrived at bedside.
--- NOTE | 2018-11-26 09:21 | NUR ---
SW attended clinical rounds. The patient reports that her mother and that services will be this Sunday. The patient states she is hopeful to be discharged by then. The patient is to transfer up to the floor today, 11/26. SW to continue to follow.
--- NOTE | 2018-11-26 09:48 | NUR ---
Report called to GEREMIAS Brady.
--- NOTE | 2018-11-26 10:15 | NUR ---
Patient taken to [facility] via wheelchair with all belongings.
--- NOTE | 2018-11-26 10:25 | NUR ---
Pt arrived to room 352 at this time. SHe is A/O x3. Her breathing is currently even and unlabored on RA. Pt reports SOB on exertion denies it at this time. Pt currently denies any pain. Pt requesting shower later today. Tele leads in place. POC discussed with patient who verbalizes understanding. No further needs.
--- NOTE | 2018-11-26 11:14 | NUR ---
Initial visit; Patient experiencing grief from recent loss of her mother and her own health issues. Melter Supervisor [employer] offered God's blessings and to keep her in Melter [employer]'s prayers.
--- NOTE | 2018-11-26 11:46 | NUR ---
Pt finished with shower, increased SOB, some stridor present. Pt's O2 sat 95% on RA. Pt placed on 2L O2 for comfort, RT contacted for breathing treatment. Pt denies any anxiety or pain at this time.
--- NOTE | 2018-11-26 18:41 | NUR ---
Pt had uneventful day. Breathing remained even and unlabored on RA. Dyspnea on exertion. No pain through the day. Tolerating diet and PO pills without complications. Pt denies needs at this time. Call light within reach.
--- NOTE | 2018-11-26 20:15 | NUR ---
Shif assessment complete. Pt resting in bedside recliner, awake, a&o, cooperative c cares. Pt denies pain or other c/o. PICC noted to R upper arm, patent c good blood return. Pt denies needs at this time. Call light in reach, will monitor.
[2018-11-27 00:03] VITALS: BP 175/71; PULSE 69; TEMP 98.2
[2018-11-27 04:51] VITALS: BP 163/68; PULSE 62; TEMP 98
[2018-11-27 06:07] LABS: BASO % 0.4 % (0.0-2.0); EOS # 0.4 (0.0-0.7); EOS % 5.3 % (0-4.0); GRAN # 4.2 (1.4-6.5); GRAN % 61.9 % (42.2-75.2); HEMOGLOBIN 11.1 g/dl (12.5-16.0); LYMPH # 1.4 (1.2-3.4); LYMPH % 20.9 % (20.0-51.0); MEAN CELL VOLUME 86 fl (80.0-100.0); MEAN CORPUSCULAR HEMOGLOBIN 28 pg (27.0-31.0); MEAN CORPUSCULAR HGB CONC 32 g/dl (33.0-37.0); MEAN PLATELET VOLUME 10.4 fl (7.4-10.4); MONO # 0.7 (0.1-0.6); MONO % 10.2 % (1.7-9.3); PLATELET COUNT 277 K/mm3 (130-400); RED BLOOD COUNT 4.01 M/mm3 (4.10-5.30); REDCELL DISTRIBUTION WIDTH-CV 13.9 % (11.5-14.5)
[2018-11-27 06:08] LABS: HEMATOCRIT 34.6 % (37.0-47.0)
[2018-11-27 06:19] LABS: CREATININE, serum 0.58 (0.52-1.25); PHOSPHOROUS 4.4 mg/dL (2.5-4.5); POTASSIUM 3.8 mmol/L (3.4-5.0)
[2018-11-27 06:26] LABS: PRE ALBUMIN 16.5 mg/dL (17.6-36.0)
[2018-11-27 06:50] LABS: TSH w REFLEX 1.71 uIU/mL (0.465-4.680)
[2018-11-27 07:27] VITALS: BP 170/79; PULSE 66; TEMP 98
--- NOTE | 2018-11-27 08:31 | NUR ---
Pt assessment complete. Pt sitting up in chair upon entry, she is A/O x3. Her breathing is currently even and unlabored on RA. Pt reports occasional cough with production. When asked about SOB pt reports I have not been up enough to know if it's better or worse. Pt denies any pain. No N/V. Pt ate breakfast this morning without issues. BP elevated, administered AM BP meds will reassess. POC discussed with patient who verbalizes understanding. No needs at this time. Call light within reach.
[2018-11-27] MEDS ORDERED: CARDIZEM CD 24240 MG PO (09:05)
[2018-11-27] MEDS ORDERED: TOPROL XL200 MG PO (09:06)
[2018-11-27 10:45] VITALS: BP 172/74
[2018-11-27 11:24] VITALS: BP 156/61; PULSE 67; TEMP 97.9
[2018-11-27] MEDS ORDERED: PACERONE400 MG PO (13:23)
[2018-11-27] MEDS ORDERED: AMOXICILLIN 8751 TAB PO (13:30)
--- NOTE | 2018-11-27 14:01 | NUR ---
Patient will discharge home today (11/27). No discharge needs.
--- NOTE | 2018-11-27 17:15 | NUR ---
Discharge instructions and paperwork reviewed with patient. All questions answered at this time. PICC removed from [facility] by GEREMIAS Dior. Pt wheeled out at this time.
== END 2018-11-27 17:17 | disposition home or self-care (01) | DRG 916 ==
LOC: COL.ER 11:34 → MEDICAL 13:43 → ICU 11-22 23:49 → MEDICAL 11-26 10:15
PROVIDERS: Emergency Medicine; Family Medicine; Nurse Practitioner Family; Physician Assistant; Psychiatry & Neurology Neurology; ADMIT Hospitalist
PROC: 02HV33Z Insertion of Infusion Device into Superior Vena Cava, Percutaneous Approach (ICD-10-PCS; 2018-11-22)
PROC: 009U3ZX Drainage of Spinal Canal, Percutaneous Approach, Diagnostic (ICD-10-PCS; principal; 2018-11-22 13:00)
DX: T78.3XXA Angioneurotic edema, initial encounter (principal); E46 Unspecified protein-calorie malnutrition; Z68.41 Body mass index [BMI] 40.0-44.9, adult; I48.91 Unspecified atrial fibrillation; E03.9 Hypothyroidism, unspecified; I10 Essential (primary) hypertension; F32.9 Major depressive disorder, single episode, unspecified; I48.0 Paroxysmal atrial fibrillation; R13.10 Dysphagia, unspecified; I48.2 Chronic atrial fibrillation; G47.33 Obstructive sleep apnea (adult) (pediatric); F41.9 Anxiety disorder, unspecified; T46.4X5A Adverse effect of angiotensin-converting-enzyme inhibitors, initial encounter; K21.9 Gastro-esophageal reflux disease without esophagitis; J32.4 Chronic pansinusitis; R91.1 Solitary pulmonary nodule; E87.6 Hypokalemia; J01.90 Acute sinusitis, unspecified; B00.9 Herpesviral infection, unspecified; J00 Acute nasopharyngitis [common cold]; R47.1 Dysarthria and anarthria; J30.2 Other seasonal allergic rhinitis; Z63.4 Disappearance and death of family member; Z79.82 Long term (current) use of aspirin; Z79.01 Long term (current) use of anticoagulants; Z79.52 Long term (current) use of systemic steroids; Z88.8 Allergy status to other drugs, medicaments and biological substances
CPT/HCPCS: 99232-AI; 99233-AI; A9284; A9585; C1751; J0133; J0282; J0295; J0360; J0610; J1200; J2060; J2250; J2405; J2704; J2930; J3010; J3475; J3480; J7030; J7060; J7131; Q9967

== ENCOUNTER 2019-02-27 08:15 | Outpatient (RCR) | payer BC ==
[~2019-02-27 08:15] MED LIST changes: +AMOXICILLIN 8751 TAB PO; +CARDIZEM CD 24240 MG PO; +PACERONE400 MG PO; +PREDNISONE10 MG PO; +TOPROL XL200 MG PO
== END 2019-05-04 | disposition home or self-care (01) ==
LOC: WSST
DX: R47.1 Dysarthria and anarthria (principal)

== ENCOUNTER → 2019-05-26 | Outpatient (CLI) | payer BC | LOC: MC.RAD 10:40 | DX: Z12.31 Encounter for screening mammogram for malignant neoplasm of breast (principal) ==

== ENCOUNTER → 2019-08-25 | Outpatient (CLI) | payer BC | LOC: COL.RAD 13:47 | DX: Z01.812 Encounter for preprocedural laboratory examination (principal); G70.00 Myasthenia gravis without (acute) exacerbation | CPT/HCPCS: Q9967 ==

== ENCOUNTER 2020-03-21 14:33 | Inpatient (IN) | payer BC ==
[~2020-03-21] VITALS: Ht 167.6 cm; Wt 118.6 kg
[2020-03-21 14:45] VITALS: TEMP 97.7
[2020-03-21 15:25] LABS: BASO % 0.4 % (0.0-2.0); EOS # 0.1 (0.0-0.7); EOS % 1.3 % (0-4.0); GRAN # 6.3 (1.4-6.5); GRAN % 75.2 % (42.2-75.2); HEMATOCRIT 43.1 % (37.0-47.0); HEMOGLOBIN 14.2 g/dl (12.5-16.0); LYMPH # 1.1 (1.2-3.4); MEAN CELL VOLUME 87 fl (80.0-100.0); MEAN CORPUSCULAR HEMOGLOBIN 29 pg (27.0-31.0); MEAN CORPUSCULAR HGB CONC 33 g/dl (33.0-37.0); MEAN PLATELET VOLUME 10.6 fl (7.4-10.4); MONO # 0.8 (0.1-0.6); MONO % 9.7 % (1.7-9.3); PLATELET COUNT 397 K/mm3 (130-400); RED BLOOD COUNT 4.98 M/mm3 (4.10-5.30); REDCELL DISTRIBUTION WIDTH-CV 13.1 % (11.5-14.5)
[2020-03-21] MEDS ORDERED: TIAZAC180 MG PO (15:31)
[2020-03-21] MEDS ORDERED: PACERONE200 MG PO (15:32)
[2020-03-21] MEDS ORDERED: ALDACTONE 25MG25 M1 PO (15:34)
[2020-03-21] MEDS ORDERED: MESTINON 6060 MG/TAB PO (15:37)
[2020-03-21] MEDS ORDERED: VITAMIN C500 MG PO (15:40)
[2020-03-21] MEDS ORDERED: MASON NATURAL S1 CAP PO (15:41)
[2020-03-21] MEDS ORDERED: B-12 500 MCG PO (15:41)
[2020-03-21 15:51] LABS: ALBUMIN 4.7 gm/dL (3.5-5.0); BILIRUBIN,TOTAL 0.7 mg/dL (0.0-1.0); C-REACTIVE PROTEIN 0.8 mg/dL (0.0-0.9); CALCIUM 9.6 mg/dL (8.4-10.2); CREATININE, serum 0.75 (0.52-1.25); MAGNESIUM 2.1 mg/dL (1.6-2.3); POTASSIUM 3.6 mmol/L (3.4-5.0); TOTAL PROTEIN 7.8 gm/dL (6.4-8.2)
[2020-03-21 16:58] VITALS: BP 139/72; PULSE 57
== END 2020-03-21 17:00 | disposition home or self-care (01) | DRG 57 ==
LOC: COL.ER 14:33 → MEDICAL 15:43
PROVIDERS: Emergency Medicine; ADMIT Family Medicine
DX: G70.01 Myasthenia gravis with (acute) exacerbation (principal); C37 Malignant neoplasm of thymus; G47.33 Obstructive sleep apnea (adult) (pediatric); I10 Essential (primary) hypertension; E03.9 Hypothyroidism, unspecified; F41.9 Anxiety disorder, unspecified; K21.9 Gastro-esophageal reflux disease without esophagitis; I48.91 Unspecified atrial fibrillation; R47.1 Dysarthria and anarthria; R13.10 Dysphagia, unspecified
CPT/HCPCS: J7030

== ENCOUNTER 2020-04-08 13:48 | Inpatient (IN) | payer BC ==
[~2020-04-08] VITALS: Ht 167.6 cm; Wt 117.8 kg
[~2020-04-08 13:48] MED LIST changes: +ALDACTONE 25MG25 M1 PO; +BUSPAR10 MG PO; +MASON NATURAL S1 CAP PO; +MESTINON 6060 MG/TAB PO; +PACERONE200 MG PO; +TIAZAC180 MG PO; +VITAMIN C500 MG PO
[2020-04-08 14:33] LABS: BASO % 0.6 % (0.0-2.0); EOS # 0.1 (0.0-0.7); GRAN # 5.5 (1.4-6.5); GRAN % 78.4 % (42.2-75.2); HEMATOCRIT 43.1 % (37.0-47.0); HEMOGLOBIN 14.2 g/dl (12.5-16.0); LYMPH # 0.6 (1.2-3.4); LYMPH % 8.8 % (20.0-51.0); MEAN CELL VOLUME 86 fl (80.0-100.0); MEAN CORPUSCULAR HEMOGLOBIN 28 pg (27.0-31.0); MEAN CORPUSCULAR HGB CONC 33 g/dl (33.0-37.0); MEAN PLATELET VOLUME 10.6 fl (7.4-10.4); MONO # 0.8 (0.1-0.6); MONO % 10.8 % (1.7-9.3); PLATELET COUNT 288 K/mm3 (130-400); RED BLOOD COUNT 5.01 M/mm3 (4.10-5.30); REDCELL DISTRIBUTION WIDTH-CV 13.3 % (11.5-14.5)
[2020-04-08 14:49] LABS: ALBUMIN 4.8 gm/dL (3.5-5.0); BILIRUBIN,TOTAL 1.1 mg/dL (0.0-1.0); CALCIUM 9.6 mg/dL (8.4-10.2); CREATININE, serum 0.83 (0.52-1.25); POTASSIUM 3.5 mmol/L (3.4-5.0)
[2020-04-08] MEDS ORDERED: ALAVERT10 M1 PO (16:34)
[2020-04-08 17:31] VITALS: BP 149/76; PULSE 59; TEMP 98.1
--- NOTE | 2020-04-08 18:30 | NUR ---
Patient arrived to floor at 1700. Initial assessment completed. Went to start her IVF's and she stated her IV is not good. Attempted to flush IV but the IV was bruised and infiltrated. Oriented patient to the room and explained the plan for her admission. No other changes at this time. Her call light is within reach. Her is brining her belongings.
--- NOTE | 2020-04-08 19:16 | NUR ---
RECEIVED CHANGE OF SHIFT REPORT FROM DAY SHIFT NURSE.
--- NOTE | 2020-04-08 20:00 | NUR ---
PATIENT SITTING AT SIDE OF BED OR UP IN RECLINER CHAIR WITH NO NEEDS REPORTED. PATIENT'S SPOUSE PRESENT IN ROOM WITH PATIENT.
[2020-04-08 20:28] VITALS: BP 149/63; PULSE 64; TEMP 97.8
[2020-04-08 23:17] VITALS: BP 147/64; PULSE 66; TEMP 97.7
--- NOTE | 2020-04-08 23:41 | NUR ---
STARTED IVIG INFUSION ORDERED. SEE [employer] FOR VS TAKEN PER HOSP/PHARM P/P.
[2020-04-08 23:53] VITALS: BP 138/65; PULSE 58; TEMP 98
--- NOTE | 2020-04-08 23:54 | NUR ---
DENIES CHEST PAIN/SHORTNESS OF BREATH/CHILLS/FEVER/BACK PAIN/NAUSEA FOR THE FIRST 15 MIN OF IVIG INFUSION. PATIENT RESTING WHILE UP IN RECLINER WITH LEGS UP/RECLINED BACK. CPAP IN PLACE. IVF INFUSING PER HOSP/PHARM REC FOR IVIG INFUSION FOR IVIG NAIVE PATIENT, IV RATE AT O.5 ML/KG/HR FOR 1ST 30 MIN.
[2020-04-09] VITALS (364 sets, daily range): BP systolic 101–177; BP diastolic 53–89; PULSE 57–115; TEMP 97.4–98.8; O2SAT 88–99
--- NOTE | 2020-04-09 00:12 | NUR ---
IVIG INFUSION RATE INCREASED PER HOSP/PHARM P/P TO 1 ML/KG/HR WITH VS TAKEN, SEE [employer] FOR VS RESULTS, WITH NO C/O CHEST PAIN/SHORTNESS OF BREATH/BACK PAIN/NAUSEA/CHILLS/FEVER AT THIS TIME. IVF INFUSING WITH NO PROBLEMS, IV SITE CLEAR OF REDNESS OR SWELLING.
--- NOTE | 2020-04-09 01:17 | NUR ---
PATIENT CONTINUES WTIH REMAINING AMOUNT OF IVIG TO BE INFUSED, PATIENT DENIES SHORTNESS OF BREATH/CHEST PAIN/CHILLS/FEVER/NAUSEA/BACK PAIN AT THIS TIME. INCREASED IV RATE TO 2ML/KG/HR PER HOSP/PHARM P/P. PATIENT SLEEPING WHILE SITTING UP IN CHAIR WITH NO NEEDS OR CONCERNS REPORTED.
--- NOTE | 2020-04-09 01:38 | NUR ---
CONTINUES TO DENY CHEST PAIN/SHORTNESS OF BREATH/CHILLS/FEVER/NAUSEA/BACK PAIN WHILE IVIG INFUSION CONTINUES WITH SMALL REMAINDER LEFT IN IV BOTTLE. PATIENT RESTING WITH EYES CLOSED SITTING UP IN RECLINER, AWAKENS WITH NAME CALLED.
--- NOTE | 2020-04-09 02:19 | NUR ---
DENIES CHEST PAIN/SHORTNESS OF BREATH/CHILLS/FEVER/NAUSEA/BACK PAIN AT THIS TIME. NS IV INFUSING WITH NO PROBLEMS. DENIES ANY NEEDS AT THIS TIME.
--- NOTE | 2020-04-09 04:10 | NUR ---
PATIENT RESTING WITH EYES CLOSED, AWAKENS WITH NAME CALLED, DENIES ANY NEEDS. IVF INFUSING WITH NO PROBLEMS.
--- NOTE | 2020-04-09 07:13 | NUR ---
CHANGE OF SHIFT REPORT GIVEN TO DAY SHIFT NURSEHELENA. IVF INFUSING WITH NO PROBLEMS. PATIENT UP IN CHAIR DURING REPORT.
[2020-04-09 07:40] LABS: HEMATOCRIT 41.5 % (37.0-47.0); HEMOGLOBIN 13.7 g/dl (12.5-16.0); MEAN CELL VOLUME 87 fl (80.0-100.0); MEAN CORPUSCULAR HEMOGLOBIN 29 pg (27.0-31.0); MEAN CORPUSCULAR HGB CONC 33 g/dl (33.0-37.0); MEAN PLATELET VOLUME 11.1 fl (7.4-10.4); PLATELET COUNT 262 K/mm3 (130-400); REDCELL DISTRIBUTION WIDTH-CV 13.2 % (11.5-14.5)
[2020-04-09 07:48] LABS: CALCIUM 9.5 mg/dL (8.4-10.2); CREATININE, serum 0.78 (0.52-1.25); POTASSIUM 3.2 mmol/L (3.4-5.0)
[2020-04-09 09:09] LABS: BAND 3 % (0-10); LYMPHOCYTE 4 % (20.0-51.0); NEUTROPHILS 92 % (42.0-75.2)
[2020-04-09 09:10] LABS: PLATELET ESTIMATE NORMAL (NORMAL)
--- NOTE | 2020-04-09 13:28 | NUR ---
Reinforcing Rod Layer met with patient to discuss discharge planning. Patient was able to answer some questions verbally but also utilized writing when needed. Patient lives in [place] with her , Jamarcus (ph#[phone]) and sees Dr. Naomi Stover for primary care. Patient obtains medications from [facility] with no difficulties and has a CPAP from [facility]. Patient reports independence with ADLS and plans to return home at discharge. Patient reports she has Advance Directives completed but SW did not locate copy in EMR. Patient is interested in support groups for her diagnosis. SW provided information about [facility], which has both virtual and in person support groups and resources. SW will continue to follow as needed.
--- NOTE | 2020-04-09 16:48 | NUR ---
Patient called out from going to bathroom and she was very short of breath. She had some wheezing and had placed her cpap on and that was helping. Her BP is slightly elevated and her heart rate. VS BP 169/77, HR 107, SPO2 95%, RR 33. Patient is alert and oriented. Dr Bob came to see patient and will be sending her to the ICU. Patients respirations were down to 22 after he assessed her and her breathing was getting better. No other changes at this time. Call light within reach.
--- NOTE | 2020-04-09 17:55 | NUR ---
Patient has been transferred to ICU. Report given to Janette ARCHULETA. All belongings packed up and sent with patient. Her is with the patient. Immune glubulin sent down to ICU with patient. Patient was starting to have more shortness of air on her way downstairs. Chart sent down with patient.
[2020-04-09 18:09] LABS: ARTERIAL BLD GAS O2 SATURATION 94.6 % (92-100); ARTERIAL BLD GAS TCO2 CT 22.3; ARTERIAL BLOOD GAS BASE EXCESS -2.2 (-2-2); ARTERIAL BLOOD GAS HCO3 21.3 meq/L (22-26); ARTERIAL BLOOD GAS PCO2 33.2 mmHg (35-45); ARTERIAL BLOOD GAS PO2 72.8 mmHg (80-100); ARTERIAL BLOOD GAS pH 7.43 (7.35-7.45)
--- NOTE | 2020-04-09 21:30 | NUR ---
Called and spoke to per pt request. Updated that was going to be intubated and that we would be doing so in the next hour. understanding and in agreement with 's decision. Consents signed with pt at this time.
--- NOTE | 2020-04-09 21:45 | NUR ---
Aneasthesia at bedside, explaining prcedure to pt. Pt is in agreement. 3: Pt sedated at this time 2204: ET tube in place, 7.5, 21 at the teeth, pt tolerated well. 2208: Propofol gtt initatiated at this time, see titration record. technical project manager restraints in place. 2216: Pt resteless. DESEAN Browning at bedside, Fentanyl IVP ordered 0: Fentanyl gtt initiated, see titration record for dosing 2230: Sedation increased due to restlessness, see titration record 2233: xray in room for ET tube placement check 2250: 18F lentz cath placed, secured to left leg, venkat clear urine.
[2020-04-10] VITALS (1013 sets, daily range): BP systolic 108–169; BP diastolic 55–87; PULSE 57–116; TEMP 97.8–98.6; O2SAT 94–99
[2020-04-10 00:27] LABS: ARTERIAL BLD GAS O2 SATURATION 98.7 % (92-100); ARTERIAL BLD GAS TCO2 CT 24.5; ARTERIAL BLOOD GAS BASE EXCESS 0.9 (-2-2); ARTERIAL BLOOD GAS HCO3 23.5 meq/L (22-26); ARTERIAL BLOOD GAS PCO2 31.5 mmHg (35-45); ARTERIAL BLOOD GAS PO2 141.3 mmHg (80-100); ARTERIAL BLOOD GAS pH 7.49 (7.35-7.45)
[2020-04-10 05:46] LABS: MEAN CELL VOLUME 87 fl (80.0-100.0); MEAN CORPUSCULAR HGB CONC 34 g/dl (33.0-37.0); MEAN PLATELET VOLUME 11.1 fl (7.4-10.4); PLATELET COUNT 223 K/mm3 (130-400); RED BLOOD COUNT 3.81 M/mm3 (4.10-5.30); REDCELL DISTRIBUTION WIDTH-CV 13.6 % (11.5-14.5)
[2020-04-10 05:51] LABS: HEMATOCRIT 33.2 % (37.0-47.0); MEAN CORPUSCULAR HEMOGLOBIN 29 pg (27.0-31.0)
[2020-04-10 05:53] LABS: ARTERIAL BLD GAS O2 SATURATION 94.8 % (92-100); ARTERIAL BLD GAS TCO2 CT 16.3; ARTERIAL BLOOD GAS BASE EXCESS -7.7 (-2-2); ARTERIAL BLOOD GAS HCO3 15.5 meq/L (22-26); ARTERIAL BLOOD GAS PCO2 25.5 mmHg (35-45); ARTERIAL BLOOD GAS PO2 83.3 mmHg (80-100)
[2020-04-10 05:56] LABS: HEMOGLOBIN 11.2 g/dl (12.5-16.0)
[2020-04-10 05:59] LABS: ALBUMIN 3.6 gm/dL (3.5-5.0); BILIRUBIN,TOTAL 0.5 mg/dL (0.0-1.0); CALCIUM 8.8 mg/dL (8.4-10.2); CREATININE, serum 0.81 (0.52-1.25)
[2020-04-10 06:03] LABS: POTASSIUM 2.9 mmol/L (3.4-5.0)
[2020-04-10 06:35] LABS: BAND 3 % (0-10); LYMPHOCYTE 1 % (20.0-51.0); NEUTROPHILS 95 % (42.0-75.2); PLATELET ESTIMATE NORMAL (NORMAL)
--- NOTE | 2020-04-10 07:00 | NUR ---
ORAL CARE DONE
--- NOTE | 2020-04-10 11:24 | NUR ---
ORAL CARE DONE @ 2795
[2020-04-11] VITALS (1112 sets, daily range): BP systolic 118–160; BP diastolic 67–81; PULSE 43–86; TEMP 97.7–98.1; O2SAT 92–100
--- NOTE | 2020-04-11 01:50 | NUR ---
DESEAN Gutierrez aware of pt prolonged QT with bradycardia.
[2020-04-11 05:37] LABS: ARTERIAL BLD GAS O2 SATURATION 97.9 % (92-100); ARTERIAL BLD GAS TCO2 CT 23.2; ARTERIAL BLOOD GAS BASE EXCESS -1.2 (-2-2); ARTERIAL BLOOD GAS HCO3 22.2 meq/L (22-26); ARTERIAL BLOOD GAS PCO2 33.1 mmHg (35-45); ARTERIAL BLOOD GAS PO2 105.9 mmHg (80-100); ARTERIAL BLOOD GAS pH 7.44 (7.35-7.45)
--- NOTE | 2020-04-11 19:10 | NUR ---
RECEIVED REPORT FROM GEREMIAS MAYER. PT RESTING EASILY ON CURRENT VENT SETTINGS: TV 450, RR 16, PEEP 5, FIO2 30%. FC PATENT AND DRAINING TO GRAVITY. NGT TO RT NARE AT 60CM, WITH TF INFUSING AT 10ML/HR. VSS. SEE GTT FLOWSHEET.
--- NOTE | 2020-04-11 22:34 | NUR ---
RESIDUAL 65ML, TF INCREASED TO 30ML/HR PER ORDERS.
[2020-04-12] VITALS (1425 sets, daily range): BP systolic 141–176; BP diastolic 70–91; PULSE 44–70; TEMP 97.8–98.5; O2SAT 85–100
--- NOTE | 2020-04-12 05:35 | NUR ---
PT PLACED ON SPONTANEOUS MODE BY RT JOHN. EDUCATED PT ON WEANING TRIAL AND SEDATION VACATION. PT NODS HEAD IN UNDERSTANDING. VSS. PT APPEARS TO BE DOING WELL THUS FAR. WILL MONITOR CLOSELY. TONGUE NOTED TO STILL BE SWOLLEN AT THIS TIME AROUND TUBE, HARD TO GET ORAL CARE SWABS IN MOUTH WITHOUT PRESSING DOWN ON TONGUE FOR VIEW.
[2020-04-12 05:58] LABS: HEMOGLOBIN 11.3 g/dl (12.5-16.0); MEAN CELL VOLUME 86 fl (80.0-100.0); MEAN CORPUSCULAR HEMOGLOBIN 28 pg (27.0-31.0); MEAN CORPUSCULAR HGB CONC 33 g/dl (33.0-37.0); MEAN PLATELET VOLUME 11.1 fl (7.4-10.4); PLATELET COUNT 178 K/mm3 (130-400); REDCELL DISTRIBUTION WIDTH-CV 13.5 % (11.5-14.5)
[2020-04-12 06:00] LABS: HEMATOCRIT 34.5 % (37.0-47.0)
[2020-04-12 06:04] LABS: BILIRUBIN,TOTAL 0.4 mg/dL (0.0-1.0); CREATININE, serum 0.69 (0.52-1.25); MAGNESIUM 2.2 mg/dL (1.6-2.3); POTASSIUM 3.8 mmol/L (3.4-5.0); TOTAL PROTEIN 6.6 gm/dL (6.4-8.2)
[2020-04-12 06:15] LABS: HYPOCHROMIA 1+; LYMPHOCYTE 4 % (20.0-51.0); NEUTROPHILS 93 % (42.0-75.2); PLATELET ESTIMATE NORMAL (NORMAL)
--- NOTE | 2020-04-12 06:24 | NUR ---
RESIDUALS 150ML, TF INCREASED TO 50ML/HR PER ORDERS.
--- NOTE | 2020-04-12 11:46 | NUR ---
Cleaning Crew Member met with patient's , Jamarcus (ph#[phone]) to request copies of Advance Directives. Earlier this morning ASHLEY contacted ASHLEY Vilchis at Dr. Stover's office to inquire about a copy and was advised that there is nothing on file. Jamarcus states he believes Living Will/DPOA-HC was completed with assistant district attorney Rajeev Kelly (ph#[phone]) in [place]. Jamarcus also requested SW email patient's daughter Carmelina (ph#[phone]) with information about support groups for Myasthenia Gravis. ASHLEY emailed Carmelina at [email or web address] and provided link to the website for [facility]. ASHLEY contacted Rajeev Kelly's office and was advised they would search for requested documents and call SW back.
--- NOTE | 2020-04-12 19:26 | NUR ---
BEDSIDE REPORT GIVEN TO LISA Jacobs RN. QUESTIONS ANSWERED. PUMPS AND VENT VERIFIED. SPOKE WITH THE DAUGHTER ASHLEE, UPDATE GIVEN ON PLAN OF CARE FOR THE NIGHT AND MORNING TIMEFRAME.
[2020-04-13] VITALS (1407 sets, daily range): BP systolic 128–210; BP diastolic 69–116; PULSE 50–93; TEMP 97.5–98.7; O2SAT 76–100
--- NOTE | 2020-04-13 05:15 | NUR ---
Fentanyl and Propofol on hold for sedation vacation.
--- NOTE | 2020-04-13 06:11 | NUR ---
PT ON WEAN TRIAL JOYCE WELL WITH NO DISTRESS NOTED AT THIS TIME. PT ON 11/03.
--- NOTE | 2020-04-13 08:23 | NUR ---
PT EXTUBATED PER DR AMARAL. DR AMARAL AT BEDSIDE DURING. PT SUCTIONE ORALLY AND VIA ETT PRIOR. EXTUBATED TO 4L OXYMASK. PT BECAME TACHYPNEIC, TACHYCARDIC AND INCREASING SOA IMMEDIATELY POST EXTUBATION. BLBS WERE DIMINISHED AND COARSE. NO STRIDOR NOTED. SPO2 88%, RR 30S, HR 146 AT THIS TIME. PT WAS REINTUBATED BY DR AMARAL WITH A SIZE 7.5 ETT SECURED TO 21 CM AT THE TEETH. BLBS COARSE AND EQUAL. SUCTIONED FOR MODERATE AMOUNT OF THIS SECRETIONS. PLACED BACK ON VENT, SETTINGS PER DR AMARAL. PT IS TOLERATING WELL.
[2020-04-13 11:07] LABS: ARTERIAL BLD GAS O2 SATURATION 96.8 % (92-100); ARTERIAL BLD GAS TCO2 CT 25.4; ARTERIAL BLOOD GAS HCO3 24.2 meq/L (22-26); ARTERIAL BLOOD GAS PO2 84.6 mmHg (80-100); ARTERIAL BLOOD GAS pH 7.42 (7.35-7.45)
--- NOTE | 2020-04-13 11:40 | NUR ---
Patient's , Jamarcus brought in DPOA-HC for patient which designates him as primary and patient's daughter, Carmelina as alternate agent. SW placed DPOA-HC on patient's chart and will continue to follow.
[2020-04-14] VITALS (798 sets, daily range): BP systolic 123–167; BP diastolic 67–88; PULSE 51–76; TEMP 98.1–98.8; O2SAT 81–100
[2020-04-14 06:27] LABS: BASO % 0.2 % (0.0-2.0); GRAN # 5.9 (1.4-6.5); GRAN % 89.8 % (42.2-75.2); HEMATOCRIT 41.3 % (37.0-47.0); LYMPH # 0.1 (1.2-3.4); MEAN CELL VOLUME 88 fl (80.0-100.0); MEAN CORPUSCULAR HEMOGLOBIN 29 pg (27.0-31.0); MEAN CORPUSCULAR HGB CONC 32 g/dl (33.0-37.0); MONO # 0.5 (0.1-0.6); MONO % 6.9 % (1.7-9.3); PLATELET COUNT 183 K/mm3 (130-400); REDCELL DISTRIBUTION WIDTH-CV 13.8 % (11.5-14.5)
--- NOTE | 2020-04-14 06:34 | NUR ---
PT IS ON WEAN TRIAL JOYCE WELL WITH NO DISTRESS NOTED AT THIS TIME. 11/03.
[2020-04-14 06:35] LABS: CREATININE, serum 0.57 (0.52-1.25); POTASSIUM 4.1 mmol/L (3.4-5.0)
[2020-04-14 06:36] LABS: HEMOGLOBIN 13.4 g/dl (12.5-16.0)
--- NOTE | 2020-04-14 15:00 | NUR ---
Patient transferred to [facility] via [facility] services. Belongings packed and sent with patient and patients . Report called to Cesario at [facility]
== END 2020-04-14 15:05 | disposition short-term general hospital (02) | DRG 56 ==
LOC: COL.ER 13:48 → SURG 15:17 → ICU 04-09 18:02
PROVIDERS: Emergency Medicine; Internal Medicine; Internal Medicine Pulmonary Disease; Nurse Practitioner Primary Care; ADMIT Student in an Organized Health Care Education/Training Program
PROC: 0BH17EZ Insertion of Endotracheal Airway into Trachea, Via Natural or Artificial Opening (ICD-10-PCS; principal; 2020-04-09)
PROC: 5A1945Z Respiratory Ventilation, 24-96 Consecutive Hours (ICD-10-PCS; 2020-04-09)
PROC: 02HV33Z Insertion of Infusion Device into Superior Vena Cava, Percutaneous Approach (ICD-10-PCS; 2020-04-10)
DX: G70.01 Myasthenia gravis with (acute) exacerbation (principal); J96.01 Acute respiratory failure with hypoxia; I48.91 Unspecified atrial fibrillation; I10 Essential (primary) hypertension; F41.9 Anxiety disorder, unspecified; K21.9 Gastro-esophageal reflux disease without esophagitis; E03.9 Hypothyroidism, unspecified; G47.33 Obstructive sleep apnea (adult) (pediatric); R13.10 Dysphagia, unspecified; R47.1 Dysarthria and anarthria; Z79.01 Long term (current) use of anticoagulants
CPT/HCPCS: 99222-AI; 99233-AI; 99239; C9113; J0330; J1170; J1200; J1569; J1650; J1815; J2704; J2920; J2930; J3010; J3480; J7030

== ENCOUNTER 2020-05-15 15:57 | Observation (INO) | payer BC ==
[~2020-05-15] VITALS: Ht 167.6 cm; Wt 104.9 kg
[~2020-05-15 15:57] MED LIST changes: +ALAVERT10 M1 PO
[2020-05-15 16:31] LABS: ARTERIAL BLD GAS O2 SATURATION 97.3 % (92-100); ARTERIAL BLD GAS TCO2 CT 26.5; ARTERIAL BLOOD GAS HCO3 25.3 meq/L (22-26); ARTERIAL BLOOD GAS PCO2 39.3 mmHg (35-45); ARTERIAL BLOOD GAS PO2 94.4 mmHg (80-100); ARTERIAL BLOOD GAS pH 7.43 (7.35-7.45)
[2020-05-15 16:58] LABS: HEMATOCRIT 40.8 % (37.0-47.0); HEMOGLOBIN 13.2 g/dl (12.5-16.0); MEAN CELL VOLUME 89 fl (80.0-100.0); MEAN CORPUSCULAR HEMOGLOBIN 29 pg (27.0-31.0); MEAN CORPUSCULAR HGB CONC 32 g/dl (33.0-37.0); MEAN PLATELET VOLUME 10.3 fl (7.4-10.4); PLATELET COUNT 397 K/mm3 (130-400); RED BLOOD COUNT 4.61 M/mm3 (4.10-5.30); REDCELL DISTRIBUTION WIDTH-CV 15.8 % (11.5-14.5)
[2020-05-15 17:07] LABS: INR 1.2 (0.8-3.0); PROTHROMBIN TIME 12.9 SECONDS (9.7-12.8)
[2020-05-15 17:10] LABS: ALBUMIN 4.7 gm/dL (3.5-5.0); BILIRUBIN,TOTAL 0.7 mg/dL (0.0-1.0); C-REACTIVE PROTEIN 0.6 mg/dL (0.0-0.9); CALCIUM 9.4 mg/dL (8.4-10.2); CREATININE, serum 0.7 (0.52-1.25); POTASSIUM 3.3 mmol/L (3.4-5.0); TOTAL PROTEIN 7.3 gm/dL (6.4-8.2)
[2020-05-15 17:22] LABS: TROPONIN-I 0.051 ng/mL (0.000-0.035)
[2020-05-15 17:38] LABS: LYMPHOCYTE 3 % (20.0-51.0); NEUTROPHILS 87 % (42.0-75.2); PLATELET ESTIMATE NORMAL (NORMAL)
[2020-05-15] MEDS ORDERED: TYLENOL 500MG500 MG PO (19:54)
[2020-05-15] MEDS ORDERED: CORDARONE200 MG/TAB PO (19:55)
[2020-05-15] MEDS ORDERED: PROAIR HFA0.09 MG/AC IH (19:55)
[2020-05-15] MEDS ORDERED: [UNRECOGNIZED DRUG - OTHER] TP (19:56)
[2020-05-15] MEDS ORDERED: NORVASC 10MG10 MG PO (19:56)
[2020-05-15] MEDS ORDERED: VITAMIN C500 MG PO (19:57)
[2020-05-15] MEDS ORDERED: ASPIRIN 81M81 MG/TA2 PO (19:57)
[2020-05-15] MEDS ORDERED: BACITRACIN Z500 U/GM TP (19:59)
[2020-05-15] MEDS ORDERED: OS-CAL 500 + D1 TAB PO (20:00)
[2020-05-15] MEDS ORDERED: BUSPAR10 MG PO (20:00)
[2020-05-15] MEDS ORDERED: VITAMIN D31000 I1 PO (20:01)
[2020-05-15] MEDS ORDERED: CARDIZEM 60MG T60 MG PO (20:01)
[2020-05-15] MEDS ORDERED: FLONASEALLERGY NS (20:02)
[2020-05-15] MEDS ORDERED: LASIX 20MG TABL20 MG PO (20:03)
[2020-05-15] MEDS ORDERED: IMODIUMSUSP PO (20:04)
[2020-05-15] MEDS ORDERED: SYNTHROID0.05 MG/TA PO (20:04)
[2020-05-15] MEDS ORDERED: CLARITIN 1010 MG/TAB PO (20:05)
[2020-05-15] MEDS ORDERED: ATIVAN 0.50.5 MG/TAB PO (20:06)
[2020-05-15] MEDS ORDERED: SINGULAIR 110 MG/TAB PO (20:07)
[2020-05-15] MEDS ORDERED: ROXICODONE 55 MG/TAB PO (20:07)
[2020-05-15] MEDS ORDERED: PROTONIX 40MG T40 MG PO (20:08)
[2020-05-15] MEDS ORDERED: K-DUR20 MEQ PO (20:09)
[2020-05-15] MEDS ORDERED: PREDNISONE20 MG PO (20:09)
[2020-05-15] MEDS ORDERED: MESTINON 6060 MG/TAB (20:10)
[2020-05-15] MEDS ORDERED: VITAMIN B12 1541 TAB PO (20:11)
[2020-05-15] MEDS ORDERED: XARELTO20 MG PO (20:11)
[2020-05-15] MEDS ORDERED: ALDACTONE 25MG25 M1 PO (20:11)
[2020-05-15 21:47] VITALS: BP 117/68; PULSE 94; TEMP 98.4
--- NOTE | 2020-05-15 21:50 | NUR ---
Pt arrived to room 314 at this time from the ED. Pt alert and oriented x4 with primary souce of communication through whiteboard due to trach. PEG tube intact with scant green drainage from around PEG site. INT to right AC CDI. Complaints of pain to PEG site that radiates around to the left side of her back. Pt denies need for pain medication at time. Trach CDI with humidification over trach. Pt denies any other needs at this time. Currently sitting up in recliner stating that is where she is going to sleep for the night. Pt oriented to room and call light. Call light within reach. Will continue to monitor.
[2020-05-15] MEDS ORDERED: ONE-A-DAY ESSE1 EACH PO (22:27)
[2020-05-15] MEDS ORDERED: [UNRECOGNIZED DRUG - OTHER] (22:31)
[2020-05-16] VITALS (7 sets, daily range): BP systolic 127–145; BP diastolic 60–94; PULSE 79–88; TEMP 98.2–98.6
[2020-05-16 06:51] LABS: HEMOGLOBIN 11.4 g/dl (12.5-16.0); MEAN CELL VOLUME 87 fl (80.0-100.0); MEAN CORPUSCULAR HEMOGLOBIN 29 pg (27.0-31.0); MEAN CORPUSCULAR HGB CONC 33 g/dl (33.0-37.0); MEAN PLATELET VOLUME 10.9 fl (7.4-10.4); PLATELET COUNT 346 K/mm3 (130-400); RED BLOOD COUNT 3.95 M/mm3 (4.10-5.30); REDCELL DISTRIBUTION WIDTH-CV 15.6 % (11.5-14.5)
[2020-05-16 06:59] LABS: HEMATOCRIT 34.5 % (37.0-47.0)
--- NOTE | 2020-05-16 07:04 | NUR ---
Pt had uneventful night. Was able to rest intermittently overnight in recliner. Did not want to sleep in bed. Currently awake in recliner. Denies any needs. Call light within reach. Report given to GEREMIAS Roland.
[2020-05-16 07:13] LABS: CALCIUM 8.9 mg/dL (8.4-10.2); CREATININE, serum 0.56 (0.52-1.25); POTASSIUM 3.9 mmol/L (3.4-5.0)
--- NOTE | 2020-05-16 07:19 | NUR ---
Bedside shift report recevied. pt awake and sitting in recliner. trach humidifier on. pt hoping to go home today. denies any needs at this time
[2020-05-16 07:47] LABS: TROPONIN-I 0.05 ng/mL (0.000-0.035)
--- NOTE | 2020-05-16 09:26 | NUR ---
MORNING MEDS GIVEN. PT AOX4. DENIES PAIN. PEG TUBE TO ABD RUQ WITH LIGHT GREEN DRAINAGE TO OLD DRESSING AND REDNESS AT 4 OCLOCK. TUBE FLUSHED WITH 60MLS GRAVITY PER PT REQUEST. RT THUMB RED AND TENDER. ABX CREAM APPLIED ORDERED AND BANDAID CHANGED. PT SELF-SUCTIONS TRACH WITH COUGH.
[2020-05-16 09:39] LABS: BAND 3 % (0-10); LYMPHOCYTE 3 % (20.0-51.0); METAMYELOCYTE 1 % (0-0); MYELOCYTE 2 % (0-0); NEUTROPHILS 84 % (42.0-75.2); PLATELET ESTIMATE NORMAL (NORMAL)
--- NOTE | 2020-05-16 10:00 | NUR ---
Called by Brenda PIERRE patient having trouble breathing suctining clots. Entered room to find had removed inner cannula bcause pt couldnt breath. Cleaned inner cannula and suctioned small amount from trach. placed inner cannula back in trach.
--- NOTE | 2020-05-16 10:15 | NUR ---
PT SEEN BY PA this morning, she apparently had an episode of troubled breathing and removed inner canula for her as she was suctioning blood clots through trach. episode followed by anxiety and pt was tearful. able to be calmed down. RT called to bedside. PA called pulmo and ENT. O2 sat 99% on RA at this time. ambulated self to bathroom after relaxing. yaunker at bedside.
--- NOTE | 2020-05-16 10:38 | NUR ---
Plan being assessed. SW met with patient in room and with sukh Chakraborty in room . Patient reports that they live near [facility]. Patient has trach and vacumm suction system with cpap. Patient reports to have the Disposable interacanal Throat trach. Spouse reports that portia another EMR contact Carmelina Keith in [place] . Obtains medications from [facility]. Reports that they met with home health agent Ashlee Kelly from [facility], Spoke with La Nena about having an additional DIT, she reports that the spouse has them and [facility] was given one to bring yesterday. La Nena reports concerns of medications for mucus. Reports that patient was DC'ed from without guaifensen. Reports it was hard to suction mucus due to thickness. Patient Dc from med to home health [facility] and was sent by ems to [facility]. Patient uses walker and report concerns of previously being on oxygen with bipap and there not being a compatible or approved device. Patient reports concerns of hard to breath, with ambulation. PCP Michael Jacobs last appointment December with next appointment May 202019. Will continue to follow for care.
--- NOTE | 2020-05-16 11:40 | NUR ---
Assisted Dr Mariela snyder with removing 4 Shiley trach and placing a 6 Shiley trach
--- NOTE | 2020-05-16 12:10 | NUR ---
PT SEEN BY ENT DOC AND TRACH TUBE CHANGED FROM SIZE 4 CUFFED TO A SIZE 6 UNCUFFED. RT AT BEDSIDE. PT TOLERATED PROCEDURE WELL. NEW YONKER AT BEDSIDE. PT ABLE TO SPEAK MORE AND VERBALIZED FEELING BETTER. O2 100% ON RA. PT ALSO SEEN BY TEACHER [employer], NO NEW ORDERS. WILL CONT TO MONITOR.
--- NOTE | 2020-05-16 20:07 | NUR ---
Assessment complete. Patient has no complaints of pain. Peg tube is draining yellow/green drainage and redness is visible beneath peg tube; this is not a recent change and dressing is changed. Patient is able to self suction her trach. She is tolerating breathing on RA well. Bilateral lower extremity 2+ pitting edema is present. Patient requests some pills to be crushed in pudding and she tolerates this well. Will continue to monitor.
[2020-05-17 04:06] VITALS: BP 130/54; PULSE 71; TEMP 97.9
[2020-05-17 06:23] LABS: HEMOGLOBIN 11.1 g/dl (12.5-16.0); MEAN CELL VOLUME 90 fl (80.0-100.0); MEAN CORPUSCULAR HEMOGLOBIN 29 pg (27.0-31.0); MEAN CORPUSCULAR HGB CONC 32 g/dl (33.0-37.0); MEAN PLATELET VOLUME 10.5 fl (7.4-10.4); PLATELET COUNT 307 K/mm3 (130-400); RED BLOOD COUNT 3.84 M/mm3 (4.10-5.30); REDCELL DISTRIBUTION WIDTH-CV 15.5 % (11.5-14.5)
[2020-05-17 06:28] LABS: HEMATOCRIT 34.5 % (37.0-47.0)
[2020-05-17 06:30] LABS: CALCIUM 9.1 mg/dL (8.4-10.2); CREATININE, serum 0.63 (0.52-1.25); POTASSIUM 3.7 mmol/L (3.4-5.0)
[2020-05-17 07:41] LABS: LYMPHOCYTE 9 % (20.0-51.0); METAMYELOCYTE 3 % (0-0); NEUTROPHILS 77 % (42.0-75.2); PLATELET ESTIMATE NORMAL (NORMAL)
[2020-05-17 08:10] LABS: PATHOLOGY DIFF REVIEW OK
[2020-05-17 08:55] VITALS: BP 126/56; PULSE 95; TEMP 98.4
--- NOTE | 2020-05-17 10:38 | NUR ---
DISCHARGE ORDER RECEIVED AND PT AWARE. WOULD LIKE TO EAT PUREED FOR LUNHC AND SICAHRGE IS TOLERATES WELL. IV DC'D. DIET ORDER CHANGED. RT TO RETURN FOR FURTHER TRACH CARE TRAINING DUE TO SUCTIONING DIFFICULTIES
--- NOTE | 2020-05-17 11:53 | NUR ---
First visit from the economic geographer. No needs right now.
[2020-05-17 12:20] VITALS: BP 140/62; PULSE 88; TEMP 97.5
--- NOTE | 2020-05-17 14:07 | NUR ---
Radio Television Announcer spoke with Tanya at [facility] about patient. Tanya advised that they are good to accept for services, however patient's current insurance coverage ends on 05/31/20. ASHLEY consulted Kristina Financial Counselor who will meet with patient to discuss options. Patient to discharge home today with [facility]. ASHLEY contacted patient's , Jamarcus to review discharge plan. Jamarcus is in agreement with patient discharging home today. Jamarcus also advised that patient will have coverage after the , it will just be under a different [employer] policy. No additional needs at this time.
[2020-05-17 15:39] VITALS: BP 130/74; PULSE 76; TEMP 98.8
--- NOTE | 2020-05-17 17:05 | NUR ---
PT TOLERATED LUNCH AND DISCHARGED TO HOME ACCOMPANIED BY @ 1600. ALL QUESTIONS ANDWERED AND NEEDS MET. NO FURTHER CONCERNS AT THIS TIME
== END 2020-05-17 16:00 | disposition home or self-care (01) ==
LOC: COL.ER 15:57 → MEDICAL 18:30
PROVIDERS: Emergency Medicine; Physician Assistant; ADMIT Hospitalist
DX: J95.03 Malfunction of tracheostomy stoma (principal); J39.8 Other specified diseases of upper respiratory tract; R55 Syncope and collapse; G70.00 Myasthenia gravis without (acute) exacerbation; I48.91 Unspecified atrial fibrillation; G47.33 Obstructive sleep apnea (adult) (pediatric); I10 Essential (primary) hypertension; Z20.828 Contact with and (suspected) exposure to other viral communicable diseases; I08.3 Combined rheumatic disorders of mitral, aortic and tricuspid valves; E43 Unspecified severe protein-calorie malnutrition; F41.9 Anxiety disorder, unspecified; K21.9 Gastro-esophageal reflux disease without esophagitis; E03.9 Hypothyroidism, unspecified; R77.8 Other specified abnormalities of plasma proteins; E87.6 Hypokalemia; D72.829 Elevated white blood cell count, unspecified; J30.2 Other seasonal allergic rhinitis; Z68.37 Body mass index [BMI] 37.0-37.9, adult; Z79.01 Long term (current) use of anticoagulants; Z79.82 Long term (current) use of aspirin; Z79.890 Hormone replacement therapy; Z85.238 Personal history of other malignant neoplasm of thymus; Z79.899 Other long term (current) drug therapy; Z88.8 Allergy status to other drugs, medicaments and biological substances; Z92.3 Personal history of irradiation; Z79.52 Long term (current) use of systemic steroids
CPT/HCPCS: 99233-AI; A7520; G0378; J7030; J7512

== ENCOUNTER 2020-07-19 19:21 | Emergency (ER) | payer BC ==
[~2020-07-19] VITALS: Ht 167.6 cm; Wt 95.5 kg
[~2020-07-19 19:21] MED LIST changes: +ATIVAN 0.50.5 MG/TAB PO; +BACITRACIN Z500 U/GM TP; +CARDIZEM 60MG T60 MG PO; +CORDARONE200 MG/TAB PO; +FLONASEALLERGY NS; +IMODIUMSUSP PO; +LASIX 20MG TABL20 MG PO; +MESTINON 6060 MG/TAB; +NORVASC 10MG10 MG PO; +ONE-A-DAY ESSE1 EACH PO; +OS-CAL 500 + D1 TAB PO; +PROAIR HFA0.09 MG/AC IH; +ROXICODONE 55 MG/TAB PO; +TYLENOL 500MG500 MG PO; +VITAMIN B12 1541 TAB PO; +VITAMIN D31000 I1 PO; +[UNRECOGNIZED DRUG - OTHER]; +[UNRECOGNIZED DRUG - OTHER] TP
[2020-07-19 19:50] VITALS: TEMP 98.5
[2020-07-19 21:06] LABS: ALBUMIN 4.1 gm/dL (3.5-5.0); CALCIUM 9.2 mg/dL (8.4-10.2); CREATININE, serum 0.63 (0.52-1.25); POTASSIUM 4.1 mmol/L (3.4-5.0); TOTAL PROTEIN 6.6 gm/dL (6.4-8.2)
[2020-07-19 21:13] LABS: HEMOGLOBIN 11.3 g/dl (12.5-16.0); MEAN CELL VOLUME 90 fl (80.0-100.0); MEAN CORPUSCULAR HEMOGLOBIN 29 pg (27.0-31.0); MEAN CORPUSCULAR HGB CONC 33 g/dl (33.0-37.0); PLATELET COUNT 374 K/mm3 (130-400); RED BLOOD COUNT 3.85 M/mm3 (4.10-5.30); REDCELL DISTRIBUTION WIDTH-CV 16.9 % (11.5-14.5)
[2020-07-19 21:15] LABS: HEMATOCRIT 34.8 % (37.0-47.0)
[2020-07-19 21:22] LABS: TROPONIN-I 0.036 ng/mL (0.000-0.035)
[2020-07-19 22:01] LABS: LYMPHOCYTE 2 % (20.0-51.0); NEUTROPHILS 93 % (42.0-75.2)
[2020-07-19 22:03] LABS: OVALOCYTES 2+
[2020-07-19 22:05] LABS: POLYCHROMASIA 1+
[2020-07-19 22:06] LABS: ANISOCYTOSIS 1+; HYPOCHROMIA 1+; PLATELET ESTIMATE NORMAL (NORMAL)
[2020-07-19 22:08] LABS: COLLECTION METHOD CLEAN CATCH
[2020-07-19 22:19] LABS: MUCOUS Present /lpf; PH 5 (5-8); SQUAMOUS EPITHELIAL 0-2 /hpf; URINE APPEARANCE Hazy; URINE BACTERIA None Seen /hpf; URINE BILIRUBIN Positive (NEGATIVE); URINE BLOOD Negative (NEGATIVE); URINE COLOR Amber; URINE GLUCOSE 1+ (NEGATIVE); URINE KETONE Trace (NEGATIVE); URINE LEUKOCYTE ESTERASE Negative (NEGATIVE); URINE NITRATE Negative (NEGATIVE); URINE PROTEIN(semi-quant) 2+ (NEGATIVE); URINE RBC 0-2 /hpf; URINE WBC 0-2 /hpf
[2020-07-20 00:45] VITALS: BP 125/81; PULSE 94
[2020-07-20 08:31] LABS: PATHOLOGY DIFF REVIEW OK +
== END 2020-07-20 00:45 | disposition short-term general hospital (02) ==
LOC: COL.ER 19:21
PROVIDERS: Emergency Medicine
DX: J20.9 Acute bronchitis, unspecified (principal); G70.00 Myasthenia gravis without (acute) exacerbation; R60.0 Localized edema; I48.91 Unspecified atrial fibrillation; I10 Essential (primary) hypertension; F41.9 Anxiety disorder, unspecified; E03.9 Hypothyroidism, unspecified; K21.9 Gastro-esophageal reflux disease without esophagitis; Z88.8 Allergy status to other drugs, medicaments and biological substances; Z79.890 Hormone replacement therapy; Z79.52 Long term (current) use of systemic steroids; Z79.01 Long term (current) use of anticoagulants
CPT/HCPCS: 99223; J0456; J0696; J2930; J7050

== ENCOUNTER 2020-09-27 12:54 | Inpatient (IN) | payer BC ==
[2020-09-27] VITALS (103 sets, daily range): BP systolic 81–141; BP diastolic 47–85; PULSE 54–75; TEMP 33.2–35.1; O2SAT 89–100
[~2020-09-27] VITALS: Ht 165.1 cm; Wt 109.2 kg
[2020-09-27 13:06] LABS: HEMOGLOBIN 10.2 g/dl (12.5-16.0); MEAN CELL VOLUME 97 fl (80.0-100.0); MEAN CORPUSCULAR HEMOGLOBIN 29 pg (27.0-31.0); MEAN CORPUSCULAR HGB CONC 30 g/dl (33.0-37.0); MEAN PLATELET VOLUME 9.7 fl (7.4-10.4); PLATELET COUNT 302 K/mm3 (130-400); RED BLOOD COUNT 3.58 M/mm3 (4.10-5.30); REDCELL DISTRIBUTION WIDTH-CV 13.7 % (11.5-14.5)
[2020-09-27 13:09] LABS: HEMATOCRIT 34.6 % (37.0-47.0)
[2020-09-27 13:15] LABS: INR 1.6 (0.8-3.0); PROTHROMBIN TIME 17.9 SECONDS (9.7-12.8)
[2020-09-27 13:18] LABS: ALBUMIN 3.2 gm/dL (3.5-5.0); BILIRUBIN,TOTAL 0.2 mg/dL (0.0-1.0); CALCIUM 7.7 mg/dL (8.4-10.2); CREATININE, serum 0.56 (0.52-1.25); POTASSIUM 4.1 mmol/L (3.4-5.0); TOTAL PROTEIN 6.4 gm/dL (6.4-8.2)
[2020-09-27 13:29] LABS: BAND 1 % (0-10); METAMYELOCYTE 4 % (0-0); MYELOCYTE 1 % (0-0); NEUTROPHILS 81 % (42.0-75.2); TROPONIN-I 0.022 ng/mL (0.000-0.035)
[2020-09-27 13:30] LABS: HYPOCHROMIA 3+; LYMPHOCYTE 11 % (20.0-51.0); PLATELET ESTIMATE NORMAL (NORMAL)
--- NOTE | 2020-09-27 14:50 | NUR ---
Initial visit; Patient came into Emergency Services Department. Hull Drafter said silent prayer and waited for her and daughter to arrive. Hull Drafter accompanied Physician into waiting area where Hull Drafter later spoke with family offering spiritual care. Both and daughter were receptive to Hull Drafter keeping them in her prayers. Hull Drafter looked in on them an hour later and both stated that they were doing "ok" and thanked Hull Drafter for checking on them. Hull Drafter offered God's blessings for their family.
[2020-09-27 14:53] LABS: ARTERIAL BLD GAS O2 SATURATION 86.3 % (92-100); ARTERIAL BLD GAS TCO2 CT 30.5; ARTERIAL BLOOD GAS BASE EXCESS 3.4 (-2-2); ARTERIAL BLOOD GAS PCO2 48.4 mmHg (35-45); ARTERIAL BLOOD GAS PO2 51.6 mmHg (80-100)
--- NOTE | 2020-09-27 16:03 | NUR ---
Arrived to the unit via stretcher. Intubated on trach. Patient not following commands. Will intermittenly open eyes wide suddenly. Slight inward motion of arms noted when eyes open. Pupils are equal and reactive to light. On low dose levophed for hypotension.
--- NOTE | 2020-09-27 17:03 | NUR ---
Bronchoscopy initiated after consent signed. Tolerated well. 02 100% during procedure. Ended at 1706. Sample obtained for lab.
--- NOTE | 2020-09-27 17:55 | NUR ---
spoke at length with the patients . many questions asked and answered. Sent 1 set of stud earings home with . 1 set of stud earings left in patient's ears. unable to remove them at this time.
[2020-09-27 18:10] LABS: AMYLASE 159 U/L (30-110); LIPASE 136 U/L (23-300)
--- NOTE | 2020-09-27 18:20 | NUR ---
Anesthesia at bedside to place an Arterial line. Attempted right arm initially but was unsuccessful. Placed eventually in left radial artery.
--- NOTE | 2020-09-27 19:25 | NUR ---
While giving bedside report to GEREMIAS Caldwell. Patient began bleeding around trach and out of nose and mouth. At the same time o2 began desaturating into the low 80's and eventually into the 60's. Luciana emergency button was called. Began bagging patient at this time with slight improvement in o2. ENT was also notified. O2 was stabilized into the low 90's. Luciana physician giving orders via telecom.
[2020-09-27 19:48] LABS: ARTERIAL BLD GAS O2 SATURATION 96.7 % (92-100); ARTERIAL BLOOD GAS BASE EXCESS 2.7 (-2-2); ARTERIAL BLOOD GAS HCO3 29.3 meq/L (22-26); ARTERIAL BLOOD GAS PCO2 54.6 mmHg (35-45); ARTERIAL BLOOD GAS PO2 96.3 mmHg (80-100); ARTERIAL BLOOD GAS pH 7.35 (7.35-7.45)
[2020-09-27 19:50] LABS: HEMOGLOBIN 10.4 g/dl (12.5-16.0); MEAN CORPUSCULAR HEMOGLOBIN 29 pg (27.0-31.0); MEAN CORPUSCULAR HGB CONC 32 g/dl (33.0-37.0); MEAN PLATELET VOLUME 9.9 fl (7.4-10.4); PLATELET COUNT 303 K/mm3 (130-400); RED BLOOD COUNT 3.62 M/mm3 (4.10-5.30); REDCELL DISTRIBUTION WIDTH-CV 13.8 % (11.5-14.5)
[2020-09-27 19:53] LABS: HEMATOCRIT 32.7 % (37.0-47.0); MEAN CELL VOLUME 90 fl (80.0-100.0)
--- NOTE | 2020-09-27 20:00 | NUR ---
While doing bedside shift report with GEREMIAS Cabrera, pt was noted to be bleeding from her trach, mouth, and nose. She began to desat into the 60's on current vent settings. Luciana button pushed for immediate assistance. Luciana physician to enter orders. Dr. Meek at bedside and placed rhino rocket to R nare. Bleeding decreased.
--- NOTE | 2020-09-27 20:04 | NUR ---
Dr. Powell notified of neurology consult.
[2020-09-27 20:09] LABS: INR 1.6 (0.8-3.0)
--- NOTE | 2020-09-27 20:28 | NUR ---
Attempted to call spouse for consent to received FFP. Did not answer and left a voicemail.
[2020-09-27 20:31] LABS: BAND 13 % (0-10); NEUTROPHILS 84 % (42.0-75.2)
[2020-09-27 20:33] LABS: HYPOCHROMIA 2+; PLATELET ESTIMATE NORMAL (NORMAL)
[2020-09-27 20:34] LABS: OVALOCYTES 1+; SCHISTOCYTES 1+
[2020-09-27 23:53] LABS: INR 1.4 (0.8-3.0); PROTHROMBIN TIME 15.9 SECONDS (9.7-12.8)
[2020-09-27 23:56] LABS: ARTERIAL BLD GAS O2 SATURATION 95.7 % (92-100); ARTERIAL BLD GAS TCO2 CT 30.7; ARTERIAL BLOOD GAS BASE EXCESS 4.4 (-2-2); ARTERIAL BLOOD GAS HCO3 29.3 meq/L (22-26); ARTERIAL BLOOD GAS PCO2 45.4 mmHg (35-45); ARTERIAL BLOOD GAS PO2 83.4 mmHg (80-100); ARTERIAL BLOOD GAS pH 7.43 (7.35-7.45)
[2020-09-27 23:56] LABS: ALBUMIN 2.6 gm/dL (3.5-5.0); CALCIUM 7.5 mg/dL (8.4-10.2); CREATININE, serum 0.59 (0.52-1.25); MAGNESIUM 1.8 mg/dL (1.6-2.3); PARTIAL THROMBOPLASTIN TIME 30.8 SECONDS (26.0-37.0); POTASSIUM 3.3 mmol/L (3.4-5.0); TOTAL PROTEIN 5.4 gm/dL (6.4-8.2)
[2020-09-28] VITALS (706 sets, daily range): BP systolic 81–139; BP diastolic 49–67; PULSE 49–58; TEMP 32.7–33.6; O2SAT 46–100
[2020-09-28 00:09] LABS: BILIRUBIN UNCONJUGATED 0.3 mg/dL (0.0-1.1); BILIRUBIN,DIRECT 0.1 mg/dL (0.0-0.4); BILIRUBIN,TOTAL 0.4 mg/dL (0.0-1.0); TROPONIN-I 0.074 ng/mL (0.000-0.035)
[2020-09-28 01:03] LABS: ARTERIAL BLD GAS O2 SATURATION 80.9 % (92-100); ARTERIAL BLOOD GAS BASE EXCESS 5.3 (-2-2); ARTERIAL BLOOD GAS HCO3 30.6 meq/L (22-26); ARTERIAL BLOOD GAS PCO2 48.1 mmHg (35-45); ARTERIAL BLOOD GAS pH 7.42 (7.35-7.45)
[2020-09-28 01:04] LABS: ARTERIAL BLOOD GAS PO2 45.1 mmHg (80-100)
--- NOTE | 2020-09-28 02:30 | NUR ---
0030 - pt began to desat into the 70's on current vent settings with no bleeding noted this time. Luciana button pushed for immediate assistance. Luciana physician to enter orders. IGNACIO Doan, notified. DESTINEE Ratliff, notified. 0130 - family notified of pt change in status. They will arrive at hospital soon. Multiple vent changes made by Luciana physician.
--- NOTE | 2020-09-28 05:00 | NUR ---
No sedation vacation performed due to pt on hypotermia protocol.
[2020-09-28 05:16] LABS: MEAN CELL VOLUME 87 fl (80.0-100.0); MEAN CORPUSCULAR HGB CONC 33 g/dl (33.0-37.0); MEAN PLATELET VOLUME 10.1 fl (7.4-10.4); PLATELET COUNT 280 K/mm3 (130-400); RED BLOOD COUNT 3.43 M/mm3 (4.10-5.30); REDCELL DISTRIBUTION WIDTH-CV 13.8 % (11.5-14.5)
[2020-09-28 05:18] LABS: HEMATOCRIT 29.9 % (37.0-47.0); HEMOGLOBIN 9.8 g/dl (12.5-16.0); MEAN CORPUSCULAR HEMOGLOBIN 29 pg (27.0-31.0)
[2020-09-28 05:18] LABS: ARTERIAL BLD GAS O2 SATURATION 96.3 % (92-100); ARTERIAL BLD GAS TCO2 CT 30.8; ARTERIAL BLOOD GAS BASE EXCESS 3.8 (-2-2); ARTERIAL BLOOD GAS HCO3 29.3 meq/L (22-26); ARTERIAL BLOOD GAS PCO2 48.3 mmHg (35-45); ARTERIAL BLOOD GAS PO2 89.2 mmHg (80-100)
[2020-09-28 05:23] LABS: ALBUMIN 2.6 gm/dL (3.5-5.0); CALCIUM 7.7 mg/dL (8.4-10.2); CREATININE, serum 0.52 (0.52-1.25); INR 1.3 (0.8-3.0); MAGNESIUM 1.9 mg/dL (1.6-2.3); PHOSPHOROUS 3.8 mg/dL (2.5-4.5); PROTHROMBIN TIME 14.9 SECONDS (9.7-12.8); TOTAL PROTEIN 5.4 gm/dL (6.4-8.2)
[2020-09-28 05:26] LABS: PARTIAL THROMBOPLASTIN TIME 31.2 SECONDS (26.0-37.0)
[2020-09-28 05:33] LABS: BILIRUBIN UNCONJUGATED 0.3 mg/dL (0.0-1.1); BILIRUBIN,DIRECT 0.2 mg/dL (0.0-0.4)
[2020-09-28 05:35] LABS: BAND 13 % (0-10); LYMPHOCYTE 1 % (20.0-51.0); MYELOCYTE 1 % (0-0); NEUTROPHILS 82 % (42.0-75.2)
[2020-09-28 05:36] LABS: ANISOCYTOSIS 1+; PLATELET ESTIMATE NORMAL (NORMAL); SCHISTOCYTES 1+; TEAR DROP CELLS 1+
[2020-09-28 05:43] LABS: TROPONIN-I 0.057 ng/mL (0.000-0.035)
[2020-09-28 05:56] LABS: BILIRUBIN,TOTAL 0.4 mg/dL (0.0-1.0)
--- NOTE | 2020-09-28 07:00 | NUR ---
Bedside report received from GEREMIAS Caldwell. Patient currently mechanically ventilated and sedated, hypothermia protocol in place and all vent settings, gtts, lines and tubes reviewed. Patient has trach and peg in place from prior hospitalization d/t her history of myasthenia gravis complications. Care taken over at this time. , Jamarcus, at the bedside. Plan of care reviewed with him. He verbalizes understanding.
--- NOTE | 2020-09-28 07:29 | NUR ---
Bedside shift report given to GEREMIAS Hall.
--- NOTE | 2020-09-28 08:20 | NUR ---
PICC intact right upper arm with sterile dressing change done with moderate amount of dried reddish drainage noted on disk, insertion site cleansed with chloraprep x 1, chlorhexidine impregnated disk applied, skin prep, stat lock, and tegaderm applied. no signs or symptoms of IV complications noted. no concerns voiced. wrapped with an ese to protect catheter. no further drainage noted.
[2020-09-28 08:24] LABS: PATHOLOGY DIFF REVIEW OK
[2020-09-28 08:25] LABS: PATHOLOGY DIFF REVIEW OK
--- NOTE | 2020-09-28 08:35 | NUR ---
Call placed to [facility] to open case. Referral # [id number]. We are asked to call with any changes in POC; Neuro Decline or Comfort Care.
--- NOTE | 2020-09-28 09:00 | NUR ---
UNABLE TO COMPLETE SUICIDE RISK ASSESSMENT THE PATIENT IS UNRESPONSIVE.
--- NOTE | 2020-09-28 09:13 | NUR ---
Follow-up; Microfiche Camera Operator met with family when patient was admitted in Emergency Services. Patient appears to be about the same, her confirms that she had a crucial experience during the night and is waiting to speak with physician today. He thanked Microfiche Camera Operator for continuing to look in on them and letting him know Microfiche Camera Operator is always available for them.
--- NOTE | 2020-09-28 10:56 | NUR ---
Angle Roll Operator attended clinical rounds with the team and patient remains intubated. Hospitalist discussed code status with patient's , Jamarcus (ph#[phone]) who is at bedside. Patient's code status changed to DNR. SW met with patient's , Jamarcus to complete initial intake. Patient lives in [place] with her , Jamarcus and sees Dr. Naomi Stover for primary care. Patient obtains medications from [facility]. Patient has home oxygen and obtains supplies from [employer]. Patient also has a trach and uses a front wheeled walker for ambulation. Jamarcus reports he had to provide assistance wt ADLS. Patient has Advance Directives in EMR which designate patient's Jamarcus as DPOA-HC. Patient's daughter, Carmelina (ph#[phone]) is listed as an alternate. Discharge plan unknown at this time and SW will continue to follow.
[2020-09-28 10:57] LABS: ARTERIAL BLD GAS O2 SATURATION 99.5 % (92-100); ARTERIAL BLD GAS TCO2 CT 24.3; ARTERIAL BLOOD GAS BASE EXCESS -1.9 (-2-2); ARTERIAL BLOOD GAS HCO3 23.1 meq/L (22-26); ARTERIAL BLOOD GAS pH 7.38 (7.35-7.45)
[2020-09-28 10:58] LABS: ARTERIAL BLOOD GAS PO2 321.8 mmHg (80-100)
[2020-09-28 11:44] LABS: INR 1.3 (0.8-3.0); PROTHROMBIN TIME 14.4 SECONDS (9.7-12.8)
[2020-09-28 11:47] LABS: PARTIAL THROMBOPLASTIN TIME 31.7 SECONDS (26.0-37.0)
[2020-09-28 11:52] LABS: ALBUMIN 2.5 gm/dL (3.5-5.0); CALCIUM 7.4 mg/dL (8.4-10.2); CREATININE, serum 0.58 (0.52-1.25); MAGNESIUM 1.8 mg/dL (1.6-2.3); POTASSIUM 3.6 mmol/L (3.4-5.0); TOTAL PROTEIN 5.1 gm/dL (6.4-8.2)
[2020-09-28 12:04] LABS: TROPONIN-I 0.045 ng/mL (0.000-0.035)
[2020-09-28 12:12] LABS: BILIRUBIN UNCONJUGATED 0.2 mg/dL (0.0-1.1); BILIRUBIN,DIRECT 0.1 mg/dL (0.0-0.4); BILIRUBIN,TOTAL 0.2 mg/dL (0.0-1.0)
--- NOTE | 2020-09-28 15:00 | NUR ---
Patient continues to have bleeding from the mouth when suctioned and when oral care is completed. Lactic elevated at 12 pm draw, value 4.4. Dr. Stover called for orders. 1 Liter NS bolus given. Follow up lactic was 5.1. Awaiting orders from Dr. Stover.
[2020-09-28 17:02] LABS: ARTERIAL BLD GAS O2 SATURATION 95.3 % (92-100); ARTERIAL BLD GAS TCO2 CT 25.2; ARTERIAL BLOOD GAS HCO3 23.8 meq/L (22-26); ARTERIAL BLOOD GAS PCO2 45.2 mmHg (35-45); ARTERIAL BLOOD GAS PO2 80.5 mmHg (80-100); ARTERIAL BLOOD GAS pH 7.34 (7.35-7.45)
[2020-09-28 17:43] LABS: INR 1.3 (0.8-3.0); PROTHROMBIN TIME 14.4 SECONDS (9.7-12.8)
[2020-09-28 17:46] LABS: PARTIAL THROMBOPLASTIN TIME 31.1 SECONDS (26.0-37.0)
[2020-09-28 17:48] LABS: ALBUMIN 2.4 gm/dL (3.5-5.0); CREATININE, serum 0.59 (0.52-1.25); MAGNESIUM 1.6 mg/dL (1.6-2.3); POTASSIUM 3.5 mmol/L (3.4-5.0); TOTAL PROTEIN 4.9 gm/dL (6.4-8.2)
[2020-09-28 17:59] LABS: TROPONIN-I 0.034 ng/mL (0.000-0.035)
[2020-09-28 18:08] LABS: BILIRUBIN UNCONJUGATED 0.2 mg/dL (0.0-1.1); BILIRUBIN,TOTAL 0.1 mg/dL (0.0-1.0)
--- NOTE | 2020-09-28 19:30 | NUR ---
Received bedside report from GEREMIAS Hall. All medications verified and all questions answered. Patient , Jamarcus, at bedside. VSS stable. Patient in the process of being rewarmed. Will resume care at this time.
--- NOTE | 2020-09-28 19:45 | NUR ---
Unable to complete suicide risk assessment screening d/t patient being unresponsive and on the ventilator. Will reassess as able.
--- NOTE | 2020-09-28 20:35 | NUR ---
Nurse entered patient room and noted that ventilator alarms were going off. Nurse noted copious amnounts of alma red blood in patients trach tubing leading up to ventilator. Patient art line BP reading 60/40s and continuing to drop. Sats reading in the 60% down into the 40%s before becoming undetectable. Nurse attempted to suction trach out but was meeting resistance with suctioning. Patient had blood pooling out of mouth and nurse used yaunker to suction mouth out. RT Constance notified of blood in trach tubing at 2038 and arrived at bedside EMERITA and began to bag patient manually. IGNACIO Doan notified of patient deterioration at 2044 and was at patient bedside by 2046. sales technician hit [facility] button in patient room for additional assistance. Dr. Lake with [facility] was given quick update on status of patient and notified that patient was a DNR and had copious amounts of alma blood pooling out of mouth and trach. Patient still had rhino rocket instilled in right nare and left nare was packed with gauze from previous bleeding during day shift. Received orders from Dr. Lake to inject 5ml of 1:20,[address] Lake stated to instill 3-4mls directly into patient trach. Nurse administered medication into trach and medication immediately pooled out of trach with blood. Patient was still being manually bagged at this point with resistance being met while bagging. RT and nurse attempting to suction with yaunker from mouth and with small suction catheter through trach. Small clot the size of a harrison had dislodged from trach. A clot the size of a small tennis ball was removed from patients mouth. Bagging was met with less resistance after clots removed. art line BP readings 30/20 and sats still nondetectable. patient EKG showing asystole. IGNACIO Doan had spoke with who stated he wanted patient to be made comfortably. PA and nurse assessed for heart sounds and pulse with none detectable. Time of was called at 2054. petroleum inspector supervisor notified. PA notified Dr. Rivas of patient expiration.
--- NOTE | 2020-09-28 21:15 | NUR ---
Removed IV lines, art line, rhino rocket from right nare and packed guaze from left air. Nurse and Charge, RN cleaned patients body and changed into fresh linens and blankets and cleaned up room for family to enter. notified that he was able to go into room whenever he was comfortable. chose to wait for patients daughter Carmelina to come. and daughter stayed in room at patient bedside until home came to forklift picker body.
--- NOTE | 2020-09-28 21:38 | NUR ---
DaniN notified of jackie's TOD 2054. Not a candidate for donation. #[id number].
--- NOTE | 2020-09-28 23:18 | NUR ---
[facility] homebirth midwife arrived to grape picker body. Bilateral ear piercings still intact in patient ears being sent with body to home. No other belongings in patient room. Nurse walked patient and daughter out of facility and home left with body at 2331
== END 2020-09-28 23:30 | disposition expired | DRG 208 ==
LOC: COL.ER 12:54 → ICU 13:54
PROVIDERS: Emergency Medicine; Internal Medicine Critical Care Medicine; Internal Medicine Pulmonary Disease; ADMIT Internal Medicine
PROC: 5A1945Z Respiratory Ventilation, 24-96 Consecutive Hours (ICD-10-PCS; principal; 2020-09-27)
PROC: 0BCB8ZZ Extirpation of Matter from Left Lower Lobe Bronchus, Via Natural or Artificial Opening Endoscopic (ICD-10-PCS; 2020-09-27)
PROC: 02HV33Z Insertion of Infusion Device into Superior Vena Cava, Percutaneous Approach (ICD-10-PCS; 2020-09-27)
DX: J95.01 Hemorrhage from tracheostomy stoma (principal); J96.01 Acute respiratory failure with hypoxia; J69.0 Pneumonitis due to inhalation of food and vomit; D62 Acute posthemorrhagic anemia; T17.490A Other foreign object in trachea causing asphyxiation, initial encounter; G93.1 Anoxic brain damage, not elsewhere classified; Z66 Do not resuscitate; Z51.5 Encounter for palliative care; I48.91 Unspecified atrial fibrillation; I10 Essential (primary) hypertension; F41.9 Anxiety disorder, unspecified; E03.9 Hypothyroidism, unspecified; K21.9 Gastro-esophageal reflux disease without esophagitis; R57.0 Cardiogenic shock; I48.0 Paroxysmal atrial fibrillation; G70.00 Myasthenia gravis without (acute) exacerbation; G47.33 Obstructive sleep apnea (adult) (pediatric); Z90.49 Acquired absence of other specified parts of digestive tract; Z79.01 Long term (current) use of anticoagulants; Z88.8 Allergy status to other drugs, medicaments and biological substances; Z20.822 Contact with and (suspected) exposure to COVID-19; Z79.52 Long term (current) use of systemic steroids; Y83.8 Other surgical procedures as the cause of abnormal reaction of the patient, or of later complication, without mention of misadventure at the time of the procedure
CPT/HCPCS: 99233-AI; C1751; C9113; C9132; J1720; J1815; J1940; J1953; J2543; J2704; J3010; J3480; J7030; J7040; J7060; J7120; Q9967